=== PATIENT | female | born 1980 | race Caucasian/White ===

== ENCOUNTER 2017-11-03 10:42 | Day surgery (SDC) | payer OTHER ==
[2017-10-30 09:22] VITALS: BMI 28.3
[~2017-11-03 10:42] MED LIST: DEXAMETHASONE SOD PHOSPHATE 10 MG/ML 1 ML VIAL IV ONE; HEPARIN SODIUM,PORCINE 5,000 UNIT/ML 1 ML VIAL SQ ONE; LACTATED RINGERS 1,000 ML IV SCH; MIDAZOLAM 2 MG/2 ML VIAL IV PRN; MORPHINE SULFATE 4 MG/ML SYRINGE IV PRN; ONDANSETRON 4 MG/2 ML VIAL IVP ONE; Pre Op ABX Message 1 EACH MISC MISCELLANE ONE; SCOPOLAMINE 1.5MG/72HR PATCH TRANSDERM ONE
[2017-11-03] MEDS ORDERED: LIDOCAINE 1% 20 ML VIAL (10MG/ML) FOR IV START INTRADERMA ONE (11:15)
[2017-11-03] MEDS ORDERED: PROPOFOL 10 MG/ML 20 ML VIAL IV ONE (13:46)
[2017-11-03] MEDS ORDERED: fentaNYL (PF) 50 MCG/ML 2 ML AMP ONE (13:46)
[2017-11-03] MEDS ORDERED: SODIUM CHLORIDE 0.9% 50 ML with ceFAZolin 2,000 MG IV ONE ×2 (13:46)
[2017-11-03] MEDS ORDERED: PHENYLEPHRINE-0.9% NACL SYG 1 MG/10 ML SYRINGE ONE (13:46)
[2017-11-03] MEDS ORDERED: LIDOCAINE 1% INJ 10MG/ML (20 ML MDV) ONE (13:46)
[2017-11-03] MEDS ORDERED: MIDAZOLAM 2 MG/2 ML VIAL ONE (13:46)
[2017-11-03] MEDS ORDERED: SUCCINYLCHOLINE CHLORIDE 100 MG/5 ML SYR IV ONE (13:46)
[2017-11-03] MEDS ORDERED: BUPIVACAINE-EPI 0.5%-1:200,000 10 ML VIAL SQ ONE (14:12)
[2017-11-03] MEDS ORDERED: LACTATED RINGERS 1,000 ML IV ONE (14:38)
[2017-11-03 14:54] VITALS: RESP 16; TEMP 98
[2017-11-03] MEDS ORDERED: HYDROcodone/APAP 5-325MG 1 EACH TAB PO ONE (15:35)
[2017-11-03 16:02] VITALS: BP 120/72; PULSE 96
--- NOTE | 2017-11-06 12:48 | P.OP ---
Date of Procedure: 11/03/17 Preoperative Diagnosis: Recurrent lower back soft tissue mass Postoperative Diagnosis: Same Procedure(s) Performed: Excision of recurrent lower back mass with wire locx2 Anesthesia: JAN Surgeon: Jessika Peterson Pathology: other Disposition: PACU Indications for Procedure: 36 years old female presents with recurrent lump in the lower back. She had excision of lower back lipoma few years ago and patient states the mass was always there and even after surgery. Ultrasound showed soft tissue mass consistent with lipoma. The mass was not readily palpable on prone position and hence wire localization was requested for bracketing the lesion Operative Findings: 2 x 3 x 2 cm soft tissue lipomatous mass which was completely excised with additional surrounding soft tissue measuring 1 x 2 x 1 cm Description of Procedure: Patient underwent wire localization under ultrasound and bracketing of the lower back lesion. She was brought to the operating room and placed in supine position. Gen. anesthesia with endotracheal intubation was performed. Patient was then positioned prone. The guidewires were medial to the prior incision site. A 3 cm skin incision was made and deepened through the subcutaneous tissue. A well-circumscribed lobulated fatty mass was identified. This was dissected from the surrounding tissue. Both wires were identified and included in the specimen. Additional rim of surrounding soft tissue mass was removed. The final defect measured 5.2 x 5.2 x 1.7 cm. This was closed in 2 layers using interrupted sutures of 3-0 Vicryl and interrupted 3-0 nylon stitches. Sponge, instrument and needle count were correct 2. Clean dressings applied. Patient tolerated the procedure well
== END 2017-11-03 16:24 | disposition home or self-care (01) ==
LOC: OR 10:42
PROVIDERS: ATTEND Surgery
DX: D17.1 Benign lipomatous neoplasm of skin and subcutaneous tissue of trunk (principal); E89.0 Postprocedural hypothyroidism; I47.1 Supraventricular tachycardia; E07.9 Disorder of thyroid, unspecified; Z79.899 Other long term (current) drug therapy; Z88.8 Allergy status to other drugs, medicaments and biological substances
CPT/HCPCS: 88304; 21931; J2250; J1644; J1100; J2405; J2001; J3010; J0690; J2370; J0330; J2704

== ENCOUNTER → 2017-11-03 | Day surgery (SDC) | payer OTHER ==
--- NOTE | 2017-11-03 09:15 | P.GSHP ---
History of Present Illness H&P Date: 11/03/17 Chief Complaint: Recurrent lipoma of lower back 36 yrs old female presents with a painful lump next to her lipoma removal scar from the back.Patient states that Dr. Wells removed a lipoma from her back several years. She had severe pain in the post op period and prolonged recovery time. No infection" it was a deep lipoma" . Patient however noticed the lump in the immediate post op period and as per her an ultrasound was done after surgery which showed persistent lipoma. She is unsure if the size has increased and is considering removal now. ROS Additionally reports: Constitutional: No fever, chills or rigors. Intentional 30 lbs weight loss HEENT: No difficulty with hearing, vision and swallowing. Lymphatic: No axillary, inguinal and cervical swellings. Endocrine: Hypothyroidism . Denies history of diabetes. Respiratory: No chest pain, shortness of breath, and cough. No hemoptysis. Cardiovascular: No palpitations, irregular HR Gastrointestinal: Denies heartburn. No change in bowel habits. No nausea or vomiting. Genitourinary: No increase in urinary frequency or urgency. No hematuria. Musculoskeletal: No back pain, joint stiffness or pain. Neurologic: No history of seizure disorder and headaches. Psychiatric: Has depression. Hematologic: Denies any abnormal mucosal bleeding or easy bruising. Physical Exam Patient is a 36-year-old female. Constitutional: General Appearance: healthy-appearing, well-nourished, and well- developed. Level of Distress: NAD. Ambulation: ambulating normally. Psychiatric: Insight: good judgement. Orientation: to time, place, and person. Head: Head: normocephalic and atraumatic. Eyes: Lids and Conjunctivae: no discharge or pallor and non-injected. Sclerae: non-icteric. ENMT: Oropharynx: moist mucous membranes. Musculoskeletal:: Motor Strength and Tone: normal and normal tone. Joints, Bones, and Muscles: normal movement of all extremities. Extremities: no cyanosis or edema. Neurologic: Gait and Station: normal gait and station. Cranial Nerves: grossly intact. Back: Thoracolumbar Appearance: well healed scar along right paraspinal area consistent with prior surgery. 3x3 cm soft tissue mass adjacent to the mass - clinically a soft tissue mass. Assessment / Plan Patient insists that there was an US done immediately after her sx which showed persistent lipoma. No reports available in [facility] portal US of back soft mass- 2.1x1.1 x1.7 cm mass consistent with lipoma. Patient wants the area removed secondary to persistent pain . I explained that the lesion is small and may not be the source of pain. Plan for US guided wire loc (bracketing) and removal in OR Ancef 2 gm IVPBx1 in preop 1. Mass of soft tissue R22.9: Localized swelling, mass and lump, unspecified 2. Hypothyroidism E03.9: Hypothyroidism, unspecified HYPOTHYROIDISM: CARE INSTRUCTIONS Past Medical History Past Medical History: Supraventricular Tachycardia (SVT) Additional Past Medical History / Comment(s): HAS BEEN HAVING PERIODS OF TACHYCARDIA History of Any Multi-Drug Resistant Organisms: None Reported Past Surgical History: Adenoidectomy, Appendectomy, Cardiac Ablation, Section, Tonsillectomy Additional Past Surgical History / Comment(s): THYROIDECTOMY. LAPAROSCOPIC EXAM Past Anesthesia/Blood Transfusion Reactions: Postoperative Nausea & Vomiting ( PONV) Smoking Status: Never smoker - Past Family History Mother Family Medical History: No Reported History Medications and Allergies Home Medications Medication Instructions Recorded Confirmed Type Zolpidem Tartrate [Ambien] 10 mg PO HS PRN 10/13/14 10/30/17 History L.acidoph/B.long/L.plant/B.lac 1 cap PO DAILY 10/14/14 10/30/17 History [Probiotic Acidophilus Beads] Ascorbic Acid [Vitamin C] 1,000 mg PO DAILY 10/30/17 10/30/17 History Calcium/Magnesium/Zinc 1 each PO DAILY 10/30/17 10/30/17 History [Lbdhdia-Kpkiiwfpu-Qssf Tablet] Levothyroxine Sodium [Tirosint] 125 mcg PO HS 10/30/17 10/30/17 History Vitamin B Complex 1 each PO DAILY 10/30/17 10/30/17 History valACYclovir [Valtrex] 500 mg PO DAILY 10/30/17 10/30/17 History Allergies Allergy/AdvReac Type Severity Reaction Status Date / Time droperidol [From Inapsine] Allergy stated Verified 10/30/17 09:03 "unable to talk had a locked jaw"
--- NOTE | 2017-11-03 13:21 | US ---
ULTRASOUND GUIDED NEEDLE LOCALIZATION LIPOMA OF THE BACK: CLINICAL HISTORY: Lipoma of the back FINDINGS: The procedure was explained to the patient. The risks, complications, benefits and alternatives were discussed and any questions were answered. Informed consent was obtained. Patient was placed supin e on the ultrasound table and prepped and draped in the usual sterile fashion. Utilizing a 5 cm Kopa n's needle, a wire localization was placed along the margins of the lipoma as requested by the candi nNohelia. Patient was stable throughout the procedure. All elements of maximal barrier and sterile technique were utilized. IMPRESSION: 1. Successful ultrasound guided needle localization wire placed for subcutaneous lipoma within the b ack.
== END ==
LOC: RADPROMAIN 10:33
PROVIDERS: ATTEND Surgery
DX: D17.1 Benign lipomatous neoplasm of skin and subcutaneous tissue of trunk (principal); E03.9 Hypothyroidism, unspecified; I47.1 Supraventricular tachycardia; Z79.899 Other long term (current) drug therapy; Z88.8 Allergy status to other drugs, medicaments and biological substances
CPT/HCPCS: 10035; 76942

== ENCOUNTER → 2017-12-05 | Outpatient (CLI) | payer OTHER | END | disposition home or self-care (01) | LOC: LABWHC1 07:30 | PROVIDERS: ATTEND Obstetrics & Gynecology | DX: N92.0 Excessive and frequent menstruation with regular cycle (principal) | CPT/HCPCS: 36415; 83001; 83002; 84146; 84443 ==

== ENCOUNTER → 2017-12-05 | Outpatient (CLI) | payer OTHER ==
[2017-12-05 08:20] LABS: Basophils % (A) 0 %; Eosinophils # (A) 0.1 k/uL (0-0.7); Eosinophils % (A) 1 %; HCT 47.6 % (34.0-46.0); HGB 14.8 gm/dL (11.4-16.0); Lymphocytes # (A) 1.8 k/uL (1.0-4.8); Lymphocytes % (A) 22 %; MCH 28.2 pg (25.0-35.0); MCHC 31.1 g/dL (31.0-37.0); MCV 90.6 fL (80.0-100.0); Mean Platelet Volume 7.7; Monocytes # (A) 0.3 k/uL (0-1.0); Monocytes % (A) 4 %; Neutrophils # (A) 5.8 k/uL (1.3-7.7); Neutrophils % (A) 71 %; Platelet Count 210 k/uL (150-450); RBC 5.25 m/uL (3.80-5.40); RDW 12.7 % (11.5-15.5); WBC 8.2 k/uL (3.8-10.6)
== END | disposition home or self-care (01) ==
LOC: LABPAT 07:32
PROVIDERS: ATTEND Obstetrics & Gynecology
DX: Z01.812 Encounter for preprocedural laboratory examination (principal)
CPT/HCPCS: 85025

== ENCOUNTER 2017-12-14 07:59 | Day surgery (SDC) | payer OTHER ==
[2017-12-08 14:25] VITALS: BMI 27.9
[~2017-12-14 07:59] MED LIST changes: -DEXAMETHASONE SOD PHOSPHATE 10 MG/ML 1 ML VIAL IV ONE; -HEPARIN SODIUM,PORCINE 5,000 UNIT/ML 1 ML VIAL SQ ONE; +HYDROmorphone 0.5 MG/0.5 ML SYRINGE IVP PRN; -MIDAZOLAM 2 MG/2 ML VIAL IV PRN; -MORPHINE SULFATE 4 MG/ML SYRINGE IV PRN; -ONDANSETRON 4 MG/2 ML VIAL IVP ONE; +ONDANSETRON 4 MG/2 ML VIAL IVP PRN; -SCOPOLAMINE 1.5MG/72HR PATCH TRANSDERM ONE; +fentaNYL (PF) 50 MCG/ML 2 ML AMP IV PRN
[2017-12-14] MEDS ORDERED: LIDOCAINE 1% 20 ML VIAL (10MG/ML) FOR IV START INTRADERMA ONE (08:36)
[2017-12-14] MEDS ORDERED: DEXAMETHASONE SOD PHOSPHATE 10 MG/ML 1 ML VIAL IV ONE (08:36)
--- NOTE | 2017-12-14 08:53 | P.HPOB ---
History of Present Illness H&P Date: 12/14/17 Chief Complaint: Menorrhagia with family planning Damaris is a 37-year-old female with heavy vaginal bleeding each cycle. While her bleeding is regular the days of separation between periods are only about 21 days. She has had these symptoms for a number of years and reports that she is bleeding almost 10 days every cycle with very heavy bleeding during the first 5 days. A discussion was held with the patient for options for treatment and did include oral contraceptives but she has hypertension as well as a Mirena IUD but she has tried that before and that did not work. She is therefore scheduled for a NovaSure ablation with a D&C and a left scopic tubal occlusion for family planning. Risks/benefits/alternatives were discussed with patient in detail and all questions were answered for her prior to proceeding to the operating room. On physical exam her vital signs are stable and she is afebrile. Heart regular, lungs clear, extremities are without pain. Abdomen soft and nontender with positive bowel sounds. Pelvic exam is otherwise generally unremarkable. Assessment menorrhagia. Plan D&C with NovaSure and laparoscopic tubal occlusion with Filshie clips. Past Medical History Past Medical History: Supraventricular Tachycardia (SVT) Additional Past Medical History / Comment(s): HAS BEEN HAVING PERIODS OF TACHYCARDIA, recently seen by Dr. Wolf. States had a cardiac work-up. States has postural tachycardia. History of Any Multi-Drug Resistant Organisms: None Reported Past Surgical History: Adenoidectomy, Appendectomy, Cardiac Ablation, Section, Tonsillectomy Additional Past Surgical History / Comment(s): THYROIDECTOMY. LAPAROSCOPIC EXAM , Lipoma removed from lower back. Past Anesthesia/Blood Transfusion Reactions: Postoperative Nausea & Vomiting ( PONV) Smoking Status: Never smoker - Past Family History Mother Family Medical History: No Reported History Medications and Allergies Home Medications Medication Instructions Recorded Confirmed Type Zolpidem Tartrate [Ambien] 10 mg PO HS PRN 10/13/14 12/14/17 History L.acidoph/B.long/L.plant/B.lac 1 cap PO DAILY 10/14/14 12/08/17 History [Probiotic Acidophilus Beads] Ascorbic Acid [Vitamin C] 1,000 mg PO DAILY 10/30/17 12/08/17 History Calcium/Magnesium/Zinc 1 each PO DAILY 10/30/17 12/08/17 History [Hvcahcj-Ghuxykxeb-Mdoj Tablet] Levothyroxine Sodium [Tirosint] 125 mcg PO HS 10/30/17 12/14/17 History Vitamin B Complex 1 each PO DAILY 10/30/17 12/08/17 History valACYclovir [Valtrex] 500 mg PO DAILY 10/30/17 12/14/17 History Allergies Allergy/AdvReac Type Severity Reaction Status Date / Time droperidol [From Inapsine] Allergy stated Verified 12/08/17 14:11 "unable to talk had a locked jaw" Exam Osteopathic Statement: *. No significant issues noted on an osteopathic structural exam other than those noted in the History and Physical/Consult. - Vital Signs Vital signs: Vital Signs Temp Pulse Resp BP Pulse Ox 12/14/17 08:33 98.7 F 79 16 119/79 100
[2017-12-14] MEDS ORDERED: NEOSTIGMINE 1 MG/ML 10 ML VIAL ONE (09:21)
[2017-12-14] MEDS ORDERED: ROCURONIUM BROMIDE 10 MG/ML 10 ML VIAL IV ONE (09:21)
[2017-12-14] MEDS ORDERED: fentaNYL (PF) 50 MCG/ML 2 ML AMP ONE (09:21)
[2017-12-14] MEDS ORDERED: HYDROmorphone (PF) 1 MG/ML ONE (09:21)
[2017-12-14] MEDS ORDERED: PHENYLEPHRINE-0.9% NACL SYG 1 MG/10 ML SYRINGE ONE (09:21)
[2017-12-14] MEDS ORDERED: MIDAZOLAM 2 MG/2 ML VIAL ONE (09:21)
[2017-12-14] MEDS ORDERED: PROPOFOL 10 MG/ML 20 ML VIAL IV ONE (09:21)
[2017-12-14] MEDS ORDERED: GLYCOPYRROLATE 0.2 MG/ML 2 ML VIAL ONE (09:21)
[2017-12-14] MEDS ORDERED: KETOROLAC 30 MG/ML 1 ML VIAL ONE (09:21)
[2017-12-14] MEDS ORDERED: LIDOCAINE 1% INJ 10MG/ML (20 ML MDV) ONE (09:21)
[2017-12-14] MEDS ORDERED: BUPIVACAINE (PF) 0.25% 30 ML VIAL SQ ONE (09:39)
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
[2017-12-14 10:30] VITALS: TEMP 98
[2017-12-14] MEDS ORDERED: HYDROmorphone 0.5 MG/0.5 ML SYRINGE IVP ONE (10:37)
[2017-12-14] MEDS ORDERED: diphenhydrAMINE 50 MG/ML 1 ML VIAL IVP ONE (10:42)
[2017-12-14] MEDS ORDERED: LACTATED RINGERS 1,000 ML IV ONE (11:10)
[2017-12-14] MEDS ORDERED: HYDROcodone/APAP 5-325MG 1 EACH TAB PO ONE (11:44)
[2017-12-14 12:21] VITALS: BP 143/90; PULSE 93; RESP 16
== END 2017-12-14 13:01 | disposition home or self-care (01) ==
LOC: OR 07:59
PROVIDERS: ATTEND Obstetrics & Gynecology
DX: N84.0 Polyp of corpus uteri (principal); Z30.2 Encounter for sterilization; N83.8 Other noninflammatory disorders of ovary, fallopian tube and broad ligament; K66.0 Peritoneal adhesions (postprocedural) (postinfection); I10 Essential (primary) hypertension; E89.0 Postprocedural hypothyroidism; Z79.899 Other long term (current) drug therapy; Z88.8 Allergy status to other drugs, medicaments and biological substances
CPT/HCPCS: 58671; 58563; 81025; 88305; J2250; J1200; J1100; J2710; J2405; J2001; J3010; J1885; J1170 ×2; J2370; J2704

== ENCOUNTER → 2017-12-30 | Outpatient (CLI) | payer OTHER ==
--- NOTE | 2017-12-30 08:28 | XR ---
EXAMINATION TYPE: XR knee complete LT DATE OF EXAM: 12/30/2017 CLINICAL HISTORY: Left knee pain. TECHNIQUE: Three views of the left knee are obtained. COMPARISON: None. FINDINGS: There is no acute fracture/dislocation evident in left knee. The tri-compartment joint sp aces appear within normal limits. The overlying soft tissue appears unremarkable. IMPRESSION: Unremarkable study.
== END | disposition home or self-care (01) ==
LOC: RADXRMAIN 08:09
PROVIDERS: ATTEND Physician Assistant
DX: M25.562 Pain in left knee (principal)

== ENCOUNTER → 2018-08-29 | Outpatient (CLI) | payer OTHER ==
--- NOTE | 2018-08-30 06:24 | MR ---
EXAMINATION TYPE: MR knee LT wo con DATE OF EXAM: 08/29/2018 COMPARISON: Left knee x-ray December 30, 2017. HISTORY: Left knee pain per order. Pain and swelling for 10 months per patient. TECHNIQUE: Multiplanar, multisequence images of the knee is performed without IV contrast. FINDINGS: MEDIAL MENISCUS: Anterior and posterior horns are intact without tear. LATERAL MENISCUS: Anterior and posterior horns are intact without tear. CRUCIATE LIGAMENTS: The anterior and posterior cruciate ligaments are intact and unremarkable. COLLATERAL LIGAMENTS: The medial collateral ligament and lateral collateral ligament complex are inta ct and unremarkable. EXTENSOR MECHANISM: Visualized quadriceps and patellar tendons are intact. EFFUSION: There is small to moderate-size suprapatellar joint effusion. POPLITEAL CYST: There is moderate to large size septated popliteal/arzate cyst measuring 6.9 cm long a xis sagittal image 22. TRICOMPARTMENT SPACES: Tricompartment joint spaces are fairly well-maintained. No significant spurrin g is seen. CARTILAGE: Tricompartment articular cartilage is preserved. There is no significant chondromalacia pa tella. BONE MARROW SIGNAL: No focal abnormal marrow signal is appreciated. OTHER: No additional significant abnormality is appreciated. IMPRESSION: 1. No meniscal or ligamentous tear is seen. 2. Moderate to large sized septated popliteal cyst. 3. Small to moderate size suprapatellar joint effusion.
== END | disposition home or self-care (01) ==
LOC: RADMRIMAIN 20:11
PROVIDERS: ATTEND Family Medicine
DX: M25.462 Effusion, left knee (principal); M71.22 Synovial cyst of popliteal space [Baker], left knee

== ENCOUNTER 2021-02-19 11:22 | Day surgery (SDC) | payer BC, OTHER ==
[~2021-02-19 11:22] MED LIST changes: -HYDROmorphone 0.5 MG/0.5 ML SYRINGE IVP PRN; -ONDANSETRON 4 MG/2 ML VIAL IVP PRN; -Pre Op ABX Message 1 EACH MISC MISCELLANE ONE; -fentaNYL (PF) 50 MCG/ML 2 ML AMP IV PRN
[2021-02-19 11:43] VITALS: RESP 16; TEMP 98.2
[2021-02-19] MEDS ORDERED: PROPOFOL 10 MG/ML 20 ML VIAL IV ONE (12:12)
--- NOTE | 2021-02-19 12:28 | P.PCN ---
Date of Procedure: 02/19/21 Procedure(s) Performed: BRIEF HISTORY: Patient is a 40-year-old pleasant white female scheduled for an elective colonoscopy as a part of evaluation of change in bowel habits and intermittent lower abdominal pain and rectal bleeding PROCEDURE PERFORMED: Colonoscopy. PREOPERATIVE DIAGNOSIS: Left lower quadrant abdominal pain, change in bowel habits and intermittent rectal bleeding. IV sedation per Anesthesia. PROCEDURE: After informed consent was obtained, the patient, was brought into the endoscopy unit. IV sedation was administered by Anesthesia under continuous monitoring. Digital rectal examination was normal. Initially the Olympus CF-160 flexible video colonoscope was then inserted in the rectum, gradually advanced into the cecum without any difficulty. Careful examination was performed as the scope was gradually being withdrawn. Ileocecal valve and the appendiceal orifice were visualized and appeared normal. Prep was air.. Mucosa of the cecum, ascending colon, transverse colon, descending colon, sigmoid colon, and rectum appeared normal. Retroflexion was performed in the rectum and no lesions were seen. The patient tolerated the procedure well. IMPRESSION: Normal-appearing colon from rectum to cecum no evidence of colorectal neoplasia . RECOMMENDATIONS: Findings of this examination were discussed with the patient as well as a family. She was advised to be on a high-fiber diet and take fiber supplements a regular basis. She can have a screening colonoscopy in 10 years..
[2021-02-19 12:52] VITALS: BP 124/85; PULSE 78
== END 2021-02-19 13:10 | disposition home or self-care (01) ==
LOC: ORWHC2ENDO 11:22
PROVIDERS: ATTEND Internal Medicine Gastroenterology
DX: K62.5 Hemorrhage of anus and rectum (principal); R10.30 Lower abdominal pain, unspecified; R19.4 Change in bowel habit; Z79.890 Hormone replacement therapy; Z79.899 Other long term (current) drug therapy; I47.1 Supraventricular tachycardia; E07.9 Disorder of thyroid, unspecified; Z86.73 Personal history of transient ischemic attack (TIA), and cerebral infarction without residual deficits; Z88.8 Allergy status to other drugs, medicaments and biological substances
CPT/HCPCS: 81025; 45378; J2704

== ENCOUNTER 2021-03-07 17:15 | Emergency (ER) | payer BC ==
[2021-03-07 17:19] VITALS: TEMP 97.7
--- NOTE | 2021-03-07 17:53 | ED ---
Chest Pain HPI - General Chief Complaint: Chest Pain Stated Complaint: Chest pressure Time Seen by Provider: 03/07/21 17:25 Source: patient Mode of arrival: ambulatory Limitations: no limitations - History of Present Illness Initial Comments: 40-year-old female presents to emergency department with a chief complaint of chest pressure. States the wall for approximately 2 weeks. States that she believes this was initially asked for reflux and she began taking Tums and Nexium. Patient reports there was no significant improvement in her symptoms. States she went to an urgent care where she was discharged with Reglan and was informed that it could potentially be a hiatal hernia. Patient reports the pressure is across her whole chest without any radiation. States it is intermittent in nature. She also reports associated exertional dyspnea with intermittent lightheadedness but no dizziness, headaches, visual changes, diaphoretic episodes or one-sided weakness and paresthesias. Patient has had 2 cardiac ablations for SVT. - Related Data Home Medications Medication Instructions Recorded Confirmed valACYclovir [Valtrex] 500 mg PO BID PRN 10/30/17 03/07/21 L.acidoph,Paracasei, B.lactis 1 cap PO DAILY 03/07/21 03/07/21 [Probiotic] Levothyroxine Sodium [Synthroid] 125 mcg PO DAILY 03/07/21 03/07/21 Metoclopramide [Reglan] 10 mg PO QID 03/07/21 03/07/21 Pantoprazole Sodium [Protonix] 40 mg PO DAILY 03/07/21 03/07/21 Allergies Allergy/AdvReac Type Severity Reaction Status Date / Time droperidol [From Inapsine] Allergy stated Verified 03/07/21 20:09 "unable to talk had a locked jaw" Review of Systems ROS Statement: Those systems with pertinent positive or pertinent negative responses have been documented in the HPI. ROS Other: All systems not noted in ROS Statement are negative. EKG Findings - EKG Comments: EKG Findings:: Prolonged QT, anterior ischemia with inverted T waves in V1 through V3. Ventricular rate 89, WA 142, QRS 96, QTc 489. Past Medical History Past Medical History: Supraventricular Tachycardia (SVT), Thyroid Disorder Additional Past Medical History / Comment(s): bleeding with stools,left lower abd pain, alterbating with constipation and diarrhea History of Any Multi-Drug Resistant Organisms: None Reported Past Surgical History: Adenoidectomy, Appendectomy, Cardiac Ablation, Section, Tonsillectomy, Tubal Ligation, Uterine Ablation Additional Past Surgical History / Comment(s): THYROIDECTOMY. LAPAROSCOPIC EXAM Past Anesthesia/Blood Transfusion Reactions: Postoperative Nausea & Vomiting (PONV) Past Psychological History: No Psychological Hx Reported Smoking Status: Never smoker Past Alcohol Use History: None Reported Past Drug Use History: None Reported - Past Family History Mother Family Medical History: No Reported History Father Family Medical History: Cancer Additional Family Medical History / Comment(s): liver CA General Exam Limitations: no limitations General appearance: alert, in no apparent distress, obese Head exam: Present: atraumatic, normocephalic, normal inspection Eye exam: Present: normal appearance, PERRL, EOMI Pupils: Present: normal accommodation ENT exam: Present: normal exam, normal oropharynx, mucous membranes moist Neck exam: Present: normal inspection, full ROM. Absent: tenderness Respiratory exam: Present: normal lung sounds bilaterally. Absent: respiratory distress, wheezes, rales, rhonchi, stridor, chest wall tenderness, accessory muscle use Cardiovascular Exam: Present: regular rate, normal rhythm, normal heart sounds. Absent: systolic murmur GI/Abdominal exam: Present: soft. Absent: distended, tenderness, guarding, rebound Extremities exam: Present: normal inspection, full ROM, normal capillary refill. Absent: tenderness, pedal edema, joint swelling Back exam: Present: normal inspection, full ROM. Absent: tenderness, CVA tenderness (R), CVA tenderness (L) Neurological exam: Present: alert, oriented X3 Psychiatric exam: Present: normal affect, normal mood Skin exam: Present: warm, dry, intact, normal color Course Vital Signs 03/07/21 03/07/21 03/07/21 17:16 19:22 20:55 Temperature 97.7 F Pulse Rate 97 77 73 Respiratory 18 16 16 Rate Blood Pressure 159/94 137/90 111/61 O2 Sat by Pulse 100 98 98 Oximetry Chest Pain MDM - MDM 4-year-old female presents emergency Department with a chief complaint of chest pressure. Physical examination is unremarkable. I will signs are within normal limits. EKG is showing anterior ischemia with no other EKG to compare. Patient also requested a GI cocktail. Laboratory initial troponin negative. Chest x- ray unremarkable. workup is unremarkable. Patient has a heart score of 1. Repeat troponin was also negative. On reevaluation, patient reports improvement in symptoms and requested a secondary GI cocktail which was given to her. 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 I do suspect esophagitis or GERD to be causing her symptoms. Return parameters were discussed patient with standing and agreeable. Case discussed with Disposition Clinical Impression: Chest pressure Disposition: HOME SELF-CARE Condition: Stable Instructions (If sedation given, give patient instructions): Chest Pain (ED) Additional Instructions: Please return to the Emergency Department if symptoms worsen or any other concerns. Is patient prescribed a controlled substance at d/c from ED?: No Referrals: Edwin Currie DO [Primary Care Provider] - 1-2 days Time of Disposition: 21:25
[2021-03-07 18:03] LABS: Basophils % (A) 0 %; Eosinophils # (A) 0.1 k/uL (0-0.7); Eosinophils % (A) 2 %; HCT 45.3 % (34.0-46.0); HGB 14.9 gm/dL (11.4-16.0); Lymphocytes # (A) 2.5 k/uL (1.0-4.8); Lymphocytes % (A) 32 %; MCH 28.1 pg (25.0-35.0); MCHC 32.9 g/dL (31.0-37.0); MCV 85.3 fL (80.0-100.0); Mean Platelet Volume 9.6; Monocytes # (A) 0.4 k/uL (0-1.0); Monocytes % (A) 5 %; Neutrophils # (A) 4.5 k/uL (1.3-7.7); Neutrophils % (A) 59 %; Platelet Count 183 k/uL (150-450); RBC 5.31 m/uL (3.80-5.40); RDW 13.5 % (11.5-15.5); WBC 7.7 k/uL (3.8-10.6)
[2021-03-07 18:12] LABS: ALT 16 U/L (4-34); AST 25 U/L (14-36); African American GFR (CKD) >90 (>60 ml/min/1.73 sqM); Albumin 4.1 g/dL (3.5-5.0); Alkaline Phosphatase 95 U/L (38-126); Anion Gap 7 mmol/L; Blood Urea Nitrogen 16 mg/dL (7-17); Calcium 8.9 mg/dL (8.4-10.2); Carbon Dioxide 25 mmol/L (22-30); Chloride 107 mmol/L (98-107); Glucose 95 mg/dL (74-99); Magnesium 1.8 mg/dL (1.6-2.3); Non-African American GFR(CKD) >90 (>60 ml/min/1.73 sqM); Potassium 3.6 mmol/L (3.5-5.1); Sodium 139 mmol/L (137-145); Total Bilirubin 0.7 mg/dL (0.2-1.3); Total Protein 7.1 g/dL (6.3-8.2)
[2021-03-07 18:16] LABS: D-Dimer <0.17 mg/L FEU (<0.60); INR 0.9 (<1.2); Partial Thromboplastin Time 23.5 sec (22.0-30.0); Prothrombin Time 9.7 sec (9.0-12.0)
--- NOTE | 2021-03-07 18:31 | XR ---
EXAMINATION TYPE: XR chest 2V DATE OF EXAM: 03/07/2021 COMPARISON: 09/16/2010 HISTORY: Chest pain TECHNIQUE: 2 views FINDINGS: Heart and mediastinum are normal. Lungs are clear. Diaphragm is normal. Bony thorax appears normal. IMPRESSION: Normal chest. No change.
[2021-03-07] MEDS ORDERED: MAG HYDROX/AL HYDROX/SIMETH 30 ML, HYOSCYAMINE ELIXIR 10 ML, LIDOCAINE VISCOUS 2% 10 ML PO STA ×6 (19:01→21:27)
[2021-03-07 19:22] VITALS: RESP 16
[2021-03-07 21:25] VITALS: BP 111/61; PULSE 73
== END 2021-03-07 21:40 | disposition home or self-care (01) ==
LOC: EC 17:15
DX: R07.89 Other chest pain (principal); E07.9 Disorder of thyroid, unspecified; I47.1 Supraventricular tachycardia; Z79.890 Hormone replacement therapy
CPT/HCPCS: 36415; 71046; 80053; 83735; 84484; 85025; 85379; 85610; 85730; 93005; 99285

== ENCOUNTER 2021-04-13 20:52 | Inpatient (IN) | payer BC ==
[2021-04-13] MEDS ORDERED: ACETAMINOPHEN TAB 500 MG TAB PO STA (21:20)
[2021-04-13] MEDS ORDERED: IBUPROFEN 800 MG TAB PO STA (21:20)
[2021-04-13] MEDS ORDERED: SODIUM CHLORIDE 0.9% 1,000 ML IV STA (21:21)
[2021-04-13] MEDS ORDERED: SODIUM CHLORIDE 0.9% 500 ML 500 ML IV STA (21:21)
--- NOTE | 2021-04-13 21:21 | ED ---
Recheck HPI - General Chief Complaint: Abdominal Pain Stated Complaint: Fever,ABD pain Time Seen by Provider: 04/13/21 21:17 Source: patient Limitations: no limitations - History of Present Illness Initial Comments: This is a 40-year-old female DF for evaluation abdominal pain left lower quadrant abdominal pain states she recent colonoscopy associated no diverticulosis or any history of any disease. Patient has nausea and vomiting dehydration and feels weak. patient has no sick contacts or travel history no similar patients with similar complaint but does have fever -: days(s) Returns Today for: persistent/worsening pain related to initial visit Symptoms Since Prior Visit: worsening pain Associated Symptoms: fever, malaise, nausea, abdominal pain Treatments Prior to Arrival: Given Antibiotics on, Given Pain Meds on - Related Data Home Medications Medication Instructions Recorded Confirmed valACYclovir [Valtrex] 500 mg PO BID PRN 10/30/17 04/13/21 Levothyroxine Sodium [Synthroid] 125 mcg PO DAILY 03/07/21 04/13/21 Metoclopramide [Reglan] 10 mg PO QID PRN 03/07/21 04/13/21 Pantoprazole Sodium [Protonix] 40 mg PO DAILY 03/07/21 04/13/21 Dicyclomine HCl 10 mg PO TID PRN 04/13/21 04/13/21 Famotidine [Pepcid] 20 mg PO DAILY 04/13/21 04/13/21 Previous Rx's Medication Instructions Recorded Amoxicillin/Potassium Clav 1 tab PO Q12HR 7 Days #14 tab 04/15/21 [Augmentin 875-125 Tablet] Allergies Allergy/AdvReac Type Severity Reaction Status Date / Time droperidol [From Inapsine] Allergy stated Verified 04/13/21 22:47 "unable to talk had a locked jaw" Review of Systems ROS Statement: Those systems with pertinent positive or pertinent negative responses have been documented in the HPI. ROS Other: All systems not noted in ROS Statement are negative. Past Medical History Past Medical History: Supraventricular Tachycardia (SVT), Thyroid Disorder Additional Past Medical History / Comment(s): bleeding with stools,left lower abd pain, alterbating with constipation and diarrhea History of Any Multi-Drug Resistant Organisms: None Reported Past Surgical History: Adenoidectomy, Appendectomy, Cardiac Ablation, Section, Tonsillectomy, Tubal Ligation, Uterine Ablation Additional Past Surgical History / Comment(s): THYROIDECTOMY. LAPAROSCOPIC EXAM Past Anesthesia/Blood Transfusion Reactions: Postoperative Nausea & Vomiting (PONV) Past Psychological History: No Psychological Hx Reported Smoking Status: Never smoker Past Alcohol Use History: None Reported Past Drug Use History: None Reported - Past Family History Mother Family Medical History: No Reported History Father Family Medical History: Cancer Additional Family Medical History / Comment(s): liver CA General Exam Limitations: no limitations General appearance: alert, in no apparent distress Head exam: Present: atraumatic, normocephalic, normal inspection Eye exam: Present: normal appearance, PERRL, EOMI. Absent: scleral icterus, conjunctival injection, periorbital swelling ENT exam: Present: normal exam, mucous membranes dry Neck exam: Present: normal inspection. Absent: tenderness, meningismus, lymphadenopathy Respiratory exam: Present: normal lung sounds bilaterally. Absent: respiratory distress, wheezes, rales, rhonchi, stridor Cardiovascular Exam: Present: normal rhythm, tachycardia, normal heart sounds. Absent: systolic murmur, diastolic murmur, rubs, gallop, clicks GI/Abdominal exam: Present: soft, tenderness (Left lower quadrant), normal bowel sounds. Absent: distended, guarding, rebound, rigid Extremities exam: Present: normal inspection, full ROM, normal capillary refill. Absent: tenderness, pedal edema, joint swelling, calf tenderness Back exam: Present: normal inspection Neurological exam: Present: alert, oriented X3, CN II-XII intact Psychiatric exam: Present: normal affect, normal mood Skin exam: Present: warm, dry, intact, normal color. Absent: rash Course Vital Signs 04/13/21 04/13/21 04/13/21 20:54 21:12 22:00 Temperature 98.8 F 100.3 F H Pulse Rate 138 H 142 H 146 H Respiratory 16 16 16 Rate Blood Pressure 165/104 147/101 121/78 O2 Sat by Pulse 100 99 98 Oximetry 04/13/21 04/14/21 04/14/21 23:43 01:00 02:00 Temperature 99.6 F 98.0 F Pulse Rate 107 H 96 89 Respiratory 16 16 16 Rate Blood Pressure 149/89 119/66 O2 Sat by Pulse 98 98 96 Oximetry 04/14/21 04/14/21 04/14/21 05:16 08:25 09:00 Temperature 98.1 F 98.2 F 98.2 F Pulse Rate 80 89 89 Respiratory 16 16 16 Rate Blood Pressure 101/57 108/69 108/69 O2 Sat by Pulse 97 98 98 Oximetry 04/14/21 04/14/21 04/14/21 10:00 11:00 12:00 Temperature Pulse Rate 82 89 90 Respiratory 16 16 16 Rate Blood Pressure O2 Sat by Pulse 98 Oximetry 04/14/21 04/14/21 04/14/21 13:00 14:00 14:42 Temperature 98.6 F Pulse Rate 88 85 92 Respiratory 16 16 16 Rate Blood Pressure 103/71 121/74 O2 Sat by Pulse 98 95 Oximetry 04/14/21 04/14/21 15:18 15:19 Temperature 98.6 F Pulse Rate 92 92 Respiratory 16 16 Rate Blood Pressure 121/74 121/74 O2 Sat by Pulse 95 95 Oximetry - Reevaluation(s) Reevaluation #1: Medical record is reviewed Patient no significant acute distress Patient symptoms improved here in the ER Patient informed of results and questions answered Medical Decision Making - Medical Decision Making 40 female DEL with diverticulitis and colitis. Patient be admitted for IV antibiotics and symptom management - Lab Data Result diagrams: 04/15/21 13:11 04/13/21 21:45 Lab Results 04/13/21 04/13/21 04/13/21 Range/Units 21:45 21:45 21:45 WBC 16.0 H (3.8-10.6) k/uL RBC 5.57 H (3.80-5.40) m/uL Hgb 16.5 H (11.4-16.0) gm/dL Hct 46.5 H (34.0-46.0) % MCV 83.4 (80.0-100.0) fL MCH 29.6 (25.0-35.0) pg MCHC 35.4 (31.0-37.0) g/dL RDW 13.2 (11.5-15.5) % Plt Count 181 (150-450) k/uL MPV 8.4 Neutrophils % 88 % Lymphocytes % 7 % Monocytes % 4 % Eosinophils % 1 % Basophils % 0 % Neutrophils # 14.1 H (1.3-7.7) k/uL Lymphocytes # 1.1 (1.0-4.8) k/uL Monocytes # 0.6 (0-1.0) k/uL Eosinophils # 0.1 (0-0.7) k/uL Basophils # 0.0 (0-0.2) k/uL PT 9.8 (9.0-12.0) sec INR 0.9 (<1.2) APTT 22.7 (22.0-30.0) sec D-Dimer 0.42 (<0.60) mg/L FEU Sodium 139 (137-145) mmol/L Potassium 3.9 (3.5-5.1) mmol/L Chloride 102 (98-107) mmol/L Carbon Dioxide 24 (22-30) mmol/L Anion Gap 13 mmol/L BUN 14 (7-17) mg/dL Creatinine 0.71 (0.52-1.04) mg/dL Est GFR (CKD-EPI)AfAm >90 (>60 ml/min/1.73 sqM) Est GFR (CKD-EPI)NonAf >90 (>60 ml/min/1.73 sqM) Glucose 97 (74-99) mg/dL Lactic Ac Sepsis Rflx Plasma Lactic Acid Chaitanya (0.7-2.0) mmol/L Calcium 9.9 (8.4-10.2) mg/dL Magnesium 1.5 L (1.6-2.3) mg/dL Ferritin 94.6 (10.0-291.0) ng/mL Total Bilirubin 1.3 (0.2-1.3) mg/dL AST 31 (14-36) U/L ALT 25 (4-34) U/L Alkaline Phosphatase 93 (38-126) U/L Lactate Dehydrogenase 536 (313-618) U/L C-Reactive Protein 1.1 H (<1.0) mg/dL Total Protein 8.3 H (6.3-8.2) g/dL Albumin 4.9 (3.5-5.0) g/dL 04/13/21 04/13/21 Range/Units 21:45 22:25 WBC (3.8-10.6) k/uL RBC (3.80-5.40) m/uL Hgb (11.4-16.0) gm/dL Hct (34.0-46.0) % MCV (80.0-100.0) fL MCH (25.0-35.0) pg MCHC (31.0-37.0) g/dL RDW (11.5-15.5) % Plt Count (150-450) k/uL MPV Neutrophils % % Lymphocytes % % Monocytes % % Eosinophils % % Basophils % % Neutrophils # (1.3-7.7) k/uL Lymphocytes # (1.0-4.8) k/uL Monocytes # (0-1.0) k/uL Eosinophils # (0-0.7) k/uL Basophils # (0-0.2) k/uL PT (9.0-12.0) sec INR (<1.2) APTT (22.0-30.0) sec D-Dimer (<0.60) mg/L FEU Sodium (137-145) mmol/L Potassium (3.5-5.1) mmol/L Chloride (98-107) mmol/L Carbon Dioxide (22-30) mmol/L Anion Gap mmol/L BUN (7-17) mg/dL Creatinine (0.52-1.04) mg/dL Est GFR (CKD-EPI)AfAm (>60 ml/min/1.73 sqM) Est GFR (CKD-EPI)NonAf (>60 ml/min/1.73 sqM) Glucose (74-99) mg/dL Lactic Ac Sepsis Rflx Y Plasma Lactic Acid Chaitanya 2.7 H* (0.7-2.0) mmol/L Calcium (8.4-10.2) mg/dL Magnesium (1.6-2.3) mg/dL Ferritin (10.0-291.0) ng/mL Total Bilirubin (0.2-1.3) mg/dL AST (14-36) U/L ALT (4-34) U/L Alkaline Phosphatase (38-126) U/L Lactate Dehydrogenase (313-618) U/L C-Reactive Protein (<1.0) mg/dL Total Protein (6.3-8.2) g/dL Albumin (3.5-5.0) g/dL - EKG Data -: EKG Interpreted by Me (EKG is sinus rhythm 1:30 DE 138 QRS 80 QTC 435) - Radiology Data Radiology results: report reviewed (CT head and pelvis positive for colitis likely diverticulitis), image reviewed Disposition Clinical Impression: Abdominal pain, Diverticulitis, Colitis, Nausea and vomiting, Tachycardia Disposition: ADMITTED IP TO THIS HOSP Condition: Good Is patient prescribed a controlled substance at d/c from ED?: No
[2021-04-13] MEDS: SODIUM CHLORIDE 0.9% 1,000 ML IV SCH (21:57)
--- NOTE | 2021-04-13 21:59 | XR ---
EXAMINATION TYPE: XR chest 1V portable DATE OF EXAM: 04/13/2021 COMPARISON: 03/07/2021 HISTORY: Pneumonia. Fever TECHNIQUE: FINDINGS: Heart and mediastinum are normal. Lungs are clear. Diaphragm is normal. There are chest hood ds. IMPRESSION: Normal chest. No change.
[2021-04-13 22:13] LABS: Basophils % (A) 0 %; Eosinophils # (A) 0.1 k/uL (0-0.7); Eosinophils % (A) 1 %; HCT 46.5 % (34.0-46.0); HGB 16.5 gm/dL (11.4-16.0); Lymphocytes # (A) 1.1 k/uL (1.0-4.8); Lymphocytes % (A) 7 %; MCH 29.6 pg (25.0-35.0); MCHC 35.4 g/dL (31.0-37.0); MCV 83.4 fL (80.0-100.0); Mean Platelet Volume 8.4; Monocytes # (A) 0.6 k/uL (0-1.0); Monocytes % (A) 4 %; Neutrophils # (A) 14.1 k/uL (1.3-7.7); Neutrophils % (A) 88 %; Platelet Count 181 k/uL (150-450); RBC 5.57 m/uL (3.80-5.40); RDW 13.2 % (11.5-15.5)
[2021-04-13 22:22] LABS: ALT 25 U/L (4-34); AST 31 U/L (14-36); African American GFR (CKD) >90 (>60 ml/min/1.73 sqM); Albumin 4.9 g/dL (3.5-5.0); Alkaline Phosphatase 93 U/L (38-126); Anion Gap 13 mmol/L; Blood Urea Nitrogen 14 mg/dL (7-17); C Reactive Protein 1.1 mg/dL (<1.0); Calcium 9.9 mg/dL (8.4-10.2); Carbon Dioxide 24 mmol/L (22-30); Chloride 102 mmol/L (98-107); Glucose 97 mg/dL (74-99); LDH 536 U/L (313-618); Magnesium 1.5 mg/dL (1.6-2.3); Non-African American GFR(CKD) >90 (>60 ml/min/1.73 sqM); Potassium 3.9 mmol/L (3.5-5.1); Sodium 139 mmol/L (137-145); Total Bilirubin 1.3 mg/dL (0.2-1.3); Total Protein 8.3 g/dL (6.3-8.2)
[2021-04-13 22:36] LABS: D-Dimer 0.42 mg/L FEU (<0.60); INR 0.9 (<1.2); Partial Thromboplastin Time 22.7 sec (22.0-30.0); Prothrombin Time 9.8 sec (9.0-12.0)
--- NOTE | 2021-04-13 22:58 | CT ---
EXAMINATION TYPE: CT abdomen pelvis w con DATE OF EXAM: 04/13/2021 COMPARISON: None HISTORY: abdominal pain, fever CT DLP: 1117 mGycm Automated exposure control for dose reduction was used. CONTRAST: Performed with IV Contrast, patient injected with 100 mL of Isovue 300. Lung bases are clear. There is no pleural effusion. Heart size is normal. There is no pericardial eff usion. Liver spleen pancreas stomach gallbladder appear intact. The bile ducts are not dilated. Liver is slightly enlarged and measures 21.7 cm. There is no adrenal mass. Kidneys show satisfactory contrast opacification. There is no hydronephrosi s. Ureters are not dilated. There is no retroperitoneal adenopathy. Appendix not clearly seen. Bladde r distends smoothly. Delayed images show normal renal excretion. There is no inguinal hernia. There are clips from tubal ligation. There is no significant free fluid in the pelvis. There is some fat stranding around the mid sigmoid colon with wall thickening. There i s 2 cm cyst on the left ovary. There is 2 cm cyst at the uterine fundus. Lumbar vertebra have normal alignment. Posterior elements are intact. There is no compression fracture. The bony pelvis is intact . IMPRESSION: Inflammatory changes around the mid sigmoid colon could relate to acute diverticulitis or colitis. Th ere is fat stranding and fluid around the colon. Segment involved measures 7 cm in length. Appendix not seen. No sign of thickened appendix.
[2021-04-13] MEDS ORDERED: MORPHINE SULFATE 4 MG/ML SYRINGE IVP STA (23:14)
[2021-04-13] MEDS ORDERED: AMPICILLIN-SULBACTAM 3 GM in SODIUM CHLORIDE 0.9% 100 ML IVPB STA (23:17)
[2021-04-13] MEDS ORDERED: IBUPROFEN 400 MG TAB PO PRN (23:38)
[2021-04-13] MEDS ORDERED: NALOXONE 0.4 MG/ML 1 ML VIAL IV PRN (23:38)
[2021-04-13] MEDS ORDERED: ACETAMINOPHEN TAB 325 MG TAB PO PRN (23:38)
[2021-04-13] MEDS ORDERED: MORPHINE SULFATE 4 MG/ML SYRINGE IV PRN (23:38)
[2021-04-13] MEDS ORDERED: ONDANSETRON 4 MG/2 ML VIAL IVP PRN (23:38)
[2021-04-14] MEDS: DEXTROSE 5%-0.45% NACL 1,000 ML IV SCH ×3 (00:43→20:16)
[2021-04-14] MEDS: HYDROmorphone 1 MG/ML 1 ML SYRINGE IVP PRN ×4 (01:58→20:14)
[2021-04-14 04:20] LABS: Basophils % (A) 0 %; Eosinophils % (A) 0 %; HCT 36.7 % (34.0-46.0); Lymphocytes # (A) 1.7 k/uL (1.0-4.8); Lymphocytes % (A) 15 %; MCHC 34.7 g/dL (31.0-37.0); MCV 83.6 fL (80.0-100.0); Mean Platelet Volume 8.6; Monocytes # (A) 0.6 k/uL (0-1.0); Monocytes % (A) 6 %; Neutrophils # (A) 9.1 k/uL (1.3-7.7); Neutrophils % (A) 79 %; Platelet Count 146 k/uL (150-450); RBC 4.39 m/uL (3.80-5.40); RDW 13.4 % (11.5-15.5); WBC 11.5 k/uL (3.8-10.6)
[2021-04-14 04:26] LABS: HGB 12.7 gm/dL (11.4-16.0)
[2021-04-14] MEDS: SODIUM CHLORIDE 0.9% 1,000 ML IV SCH ×2 (06:46→13:07)
[2021-04-14] MEDS: PANTOPRAZOLE 40 MG/10 ML VIAL IV SCH (08:26)
[2021-04-14] MEDS ORDERED: DICYCLOMINE 20 MG TAB PO PRN (10:44)
[2021-04-14] MEDS: PIPERACILLIN-TAZOBACTAM 3.375 GM in SODIUM CHLORIDE 0.9% 100 ML IVPB SCH ×2 (13:11→20:15)
[2021-04-14] MEDS: MAGNESIUM SULFATE-D5W PMX 1 GM in DEXTROSE/WATER 1 100ML.BAG IVPB SCH ×2 (13:16→14:36)
[2021-04-14 13:37] LABS: Ferritin 94.6 ng/mL (10.0-291.0)
--- NOTE | 2021-04-14 13:42 | P.CONS ---
History of Present Illness - Reason for Consult Consult date: 04/14/21 abdominal pain, colitis Requesting physician: Chrissy Al - Chief Complaint Abdominal pain - History of Present Illness This is a pleasant 40-year-old white female who presented to the emergency department yesterday with complaints of sharp pain in her left lower quadrant of her abdomen that began around 4:00 in the afternoon followed by fever and chills. She had positive nausea, no vomiting. States this happened 2-3 months ago and has seen Dr. Jimenez in the office. She is being treated for IBS. She had a prior colonoscopy 02/19/2021 with a normal appearing colon. She was prescribed Bentyl and takes as needed, also prescribed amitriptyline but did not continue due to her history of SVT. She has a past medical history of SVT with 2 cardiac ablations, questionable POTS, and thyroid disorder. She states she has IBS with constipation and diarrhea. She states she did have a couple loose stools, no blood in her stool. She recently traveled to [place]. No other family members are sick. Her temperature on admission was 100.3. WBC 11.5, hemoglobin 12.7, hematocrit 36.7, platelets 146,000, total bilirubin 1.3, alkaline phosphatase 93, AST 31, ALT 25. CRP 1.1 CT of abdomen and pelvis show inflammatory changes around the mid sigmoid colon could relate to acute diverticulitis or colitis. There is fat stranding and fluid around the colon. Segment involved measures 7 cm in length. Appendix not seen. No sign of thickened appendix. Review of Systems REVIEW OF SYSTEMS: CARDIOPULMONARY: No chest pain or shortness of breath. Gastrointestinal: Abdominal pain and cramping.. Positive nausea, no vomiting. No hematemesis, coffee-ground emesis. No rectal bleeding, or melena. Constipation and diarrhea. GENITOURINARY: No dysuria or hematuria. MUSCULOSKELETAL: Reports normal range of motion., Joint pain. SKIN: No rashes. No jaundice. ENDOCRINE: Fever and chills.. No excessive weight gain or loss. No polydipsia or polyuria. PSYCHIATRIC: Unremarkable. NEUROLOGY: No change in mental status. Denies dizziness, headache. ENT: Vision unremarkable. CONSTITUTIONAL: No recent weight loss. Patient had fever and chills. Past Medical History Past Medical History: Supraventricular Tachycardia (SVT), Thyroid Disorder Additional Past Medical History / Comment(s): bleeding with stools,left lower abd pain, alterbating with constipation and diarrhea History of Any Multi-Drug Resistant Organisms: None Reported Past Surgical History: Adenoidectomy, Appendectomy, Cardiac Ablation, Section, Tonsillectomy, Tubal Ligation, Uterine Ablation Additional Past Surgical History / Comment(s): THYROIDECTOMY. LAPAROSCOPIC EXAM Past Anesthesia/Blood Transfusion Reactions: Postoperative Nausea & Vomiting (PONV) Past Psychological History: No Psychological Hx Reported Smoking Status: Never smoker Past Alcohol Use History: None Reported Past Drug Use History: None Reported - Past Family History Mother Family Medical History: No Reported History Father Family Medical History: Cancer Additional Family Medical History / Comment(s): liver CA Medications and Allergies Home Medications Medication Instructions Recorded Confirmed Type valACYclovir [Valtrex] 500 mg PO BID PRN 10/30/17 04/13/21 History Levothyroxine Sodium [Synthroid] 125 mcg PO DAILY 03/07/21 04/13/21 History Metoclopramide [Reglan] 10 mg PO QID PRN 03/07/21 04/13/21 History Pantoprazole Sodium [Protonix] 40 mg PO DAILY 03/07/21 04/13/21 History Dicyclomine HCl 10 mg PO TID PRN 04/13/21 04/13/21 History Famotidine [Pepcid] 20 mg PO DAILY 04/13/21 04/13/21 History Allergies Allergy/AdvReac Type Severity Reaction Status Date / Time droperidol [From Inapsine] Allergy stated Verified 04/13/21 22:47 "unable to talk had a locked jaw" Physical Exam Vitals: Vital Signs Temp Pulse Resp BP Pulse Ox 04/14/21 08:25 98.2 F 89 16 108/69 98 04/14/21 05:16 98.1 F 80 16 101/57 97 04/14/21 02:00 98.0 F 89 16 119/66 96 04/14/21 01:00 96 16 98 04/13/21 23:43 99.6 F 107 H 16 149/89 98 04/13/21 22:00 146 H 16 121/78 98 04/13/21 21:12 100.3 F H 142 H 16 147/101 99 04/13/21 20:54 98.8 F 138 H 16 165/104 100 Intake and Output 04/13/21 04/14/21 04/14/21 22:59 06:59 14:59 Other: Weight 81.647 kg General appearance: The patient is alert, oriented, appears in no acute distre ss. HET: Head is normocephalic and atraumatic. Conjunctiva pink. Sclera anicteric. Neck: Supple without lymphadenopathy. Trachea midline. Heart: S1 S2. Regular rate and rhythm. Lungs:Clear to auscultation. Abdomen: Soft,mid and left lower quadrant tenderness, nondistended with bowel sounds. Noguarding or rigidity. Skin: No rashes. No jaundice. Extremities: Normal skin color and turgor. No pedal edema. Neurological: No focal deficits. Alert and oriented 3. Results CBC & Chem 7: 04/14/21 03:37 04/13/21 21:45 Labs: Abnormal Lab Results - Last 24 Hours (Table) 04/13/21 04/13/21 04/13/21 Range/Units 21:45 21:45 21:45 WBC 16.0 H (3.8-10.6) k/uL RBC 5.57 H (3.80-5.40) m/uL Hgb 16.5 H (11.4-16.0) gm/dL Hct 46.5 H (34.0-46.0) % Plt Count (150-450) k/uL Neutrophils # 14.1 H (1.3-7.7) k/uL Plasma Lactic Acid Chaitanya 2.7 H* (0.7-2.0) mmol/L Magnesium 1.5 L (1.6-2.3) mg/dL C-Reactive Protein 1.1 H (<1.0) mg/dL Total Protein 8.3 H (6.3-8.2) g/dL 04/14/21 04/14/21 Range/Units 00:39 03:37 WBC 11.5 H (3.8-10.6) k/uL RBC (3.80-5.40) m/uL Hgb (11.4-16.0) gm/dL Hct (34.0-46.0) % Plt Count 146 L (150-450) k/uL Neutrophils # 9.1 H (1.3-7.7) k/uL Plasma Lactic Acid Chaitanya 2.4 H* (0.7-2.0) mmol/L Magnesium (1.6-2.3) mg/dL C-Reactive Protein (<1.0) mg/dL Total Protein (6.3-8.2) g/dL CT scan - abdomen: report reviewed (CT of abdomen and pelvis show inflammatory changes around the mid sigmoid colon could relate to acute diverticulitis or colitis. There is fat stranding and fluid around the colon. Segment involved measures 7 cm in length. Appendix not seen. No sign of thickened appendix.) Assessment and Plan (1) Abdominal pain Narrative/Plan: 40-year-old female who presented to the emergency department with complaints of new onset abdominal pain and cramping greatest in the left lower quadrant associated with nausea but no vomiting He can yesterday afternoon followed by fevers and chills. She states she had a similar episode 2-3 months ago, at that time she was also having bloody bowel movements. She denies any diarrhea or blood per rectum. States she had some constipation and took 2 laxatives and had a soft bowel movement. She has been treated for irritable bowel syndrome with Bentyl and was prescribed amitriptyline but did not continue due to her history of SVT. She had a max temp 100.3 on admission. She recently returned from a vacation to [place], denies any sick contacts. She had a colonoscopy 02/19/[address] Jimenez that showed a normal-appearing colon. On admission she had leukocytosis, hemoglobin stable at 12.7, CRP 1.1. LFTs unremarkable. Likely dealing with an infectious colitis/diverticulitis, other possibilities include inflammatory or ischemic, although less likely as she has had recent colonoscopy which was normal. Inflammatory markers ordered. Current Visit: Yes Status: Acute Code(s): R10.9 - UNSPECIFIED ABDOMINAL PAIN SNOMED Code(s): 76706542 Plan: 1. Continue symptomatic supportive care 2. Antiemetics as needed for nausea 3. Zosyn q12 hours 4. Protonix 40 mg daily 5. Patient may have clear liquid diet 6. Bentyl as needed 7. No plans on endoscopic evaluation at this time. If patient has a recurrence she is to follow-up with Dr. Jimenez for outpatient colonoscopy. Thank you for this consultation, we will continue to follow Dr. James I agree with the dictator's note, documented as a scribe by Freda Centeno.
--- NOTE | 2021-04-14 14:16 | P.HPIM ---
History of Present Illness Patient is a 40-year-old female came in with complaints of left lower quadrant abdominal pain and severe sharp in nature nonradiating patient was also having crampy abdominal pain. Patient is found to have diverticulitis or colitis patient was started on antibiotics Unasyn which was subsequently switched to Zosyn. Patient to past had similar symptoms. Patient had a colonoscopy at that time which was clear. Patient was diagnosed with the irritable bowel syndrome. Patient's present episode is associated with fever and she says she has temperature of 100.7 at home and had a documented fever of 100.3 here. Patient is bit hypomagnesemia which is being replaced at this time. Patient does have leukocytosis. Review of Systems REVIEW OF SYSTEMS: CONSTITUTIONAL: No fever, no malaise, no fatigue. HEENT: No recent visual problems or hearing problems. Denied any sore throat. CARDIOVASCULAR: No chest pain, orthopnea, PND, no palpitations, no syncope. PULMONARY: No shortness of breath, no cough, no hemoptysis. GASTROINTESTINAL: Patient did complain of diarrhea NEUROLOGICAL: No headaches, no weakness, no numbness. HEMATOLOGICAL: Denies any bleeding or petechiae. GENITOURINARY: Denies any burning micturition, frequency, or urgency. MUSCULOSKELETAL/RHEUMATOLOGICAL: Denies any joint pain, swelling, or any muscle pain. ENDOCRINE: Denies any polyuria or polydipsia. The rest of the 14-point review of systems is negative. Past Medical History Past Medical History: Supraventricular Tachycardia (SVT), Thyroid Disorder Additional Past Medical History / Comment(s): bleeding with stools,left lower abd pain, alterbating with constipation and diarrhea History of Any Multi-Drug Resistant Organisms: None Reported Past Surgical History: Adenoidectomy, Appendectomy, Cardiac Ablation, Section, Tonsillectomy, Tubal Ligation, Uterine Ablation Additional Past Surgical History / Comment(s): THYROIDECTOMY. LAPAROSCOPIC EXAM Past Anesthesia/Blood Transfusion Reactions: Postoperative Nausea & Vomiting (PONV) Past Psychological History: No Psychological Hx Reported Smoking Status: Never smoker Past Alcohol Use History: None Reported Past Drug Use History: None Reported - Past Family History Mother Family Medical History: No Reported History Father Family Medical History: Cancer Additional Family Medical History / Comment(s): liver CA Medications and Allergies Home Medications Medication Instructions Recorded Confirmed Type valACYclovir [Valtrex] 500 mg PO BID PRN 10/30/17 04/13/21 History Levothyroxine Sodium [Synthroid] 125 mcg PO DAILY 03/07/21 04/13/21 History Metoclopramide [Reglan] 10 mg PO QID PRN 03/07/21 04/13/21 History Pantoprazole Sodium [Protonix] 40 mg PO DAILY 03/07/21 04/13/21 History Dicyclomine HCl 10 mg PO TID PRN 04/13/21 04/13/21 History Famotidine [Pepcid] 20 mg PO DAILY 04/13/21 04/13/21 History Allergies Allergy/AdvReac Type Severity Reaction Status Date / Time droperidol [From Inapsine] Allergy stated Verified 04/13/21 22:47 "unable to talk had a locked jaw" Physical Exam Vitals: Vital Signs Temp Pulse Resp BP Pulse Ox 04/14/21 08:25 98.2 F 89 16 108/69 98 04/14/21 05:16 98.1 F 80 16 101/57 97 04/14/21 02:00 98.0 F 89 16 119/66 96 04/14/21 01:00 96 16 98 04/13/21 23:43 99.6 F 107 H 16 149/89 98 04/13/21 22:00 146 H 16 121/78 98 04/13/21 21:12 100.3 F H 142 H 16 147/101 99 04/13/21 20:54 98.8 F 138 H 16 165/104 100 Intake and Output 04/13/21 04/14/21 04/14/21 22:59 06:59 14:59 Other: Weight 81.647 kg PHYSICAL EXAMINATION: GENERAL: The patient is alert and oriented x3, not in any acute distress. Well developed, well nourished. HEENT: Pupils are round and equally reacting to light. EOMI. No scleral icterus. No conjunctival pallor. Normocephalic, atraumatic. No pharyngeal erythema. No thyromegaly. CARDIOVASCULAR: S1 and S2 present. No murmurs, rubs, or gallops. PULMONARY: Chest is clear to auscultation, no wheezing or crackles. ABDOMEN: Soft, nontender, nondistended, normoactive bowel sounds. No palpable organomegaly. MUSCULOSKELETAL: No joint swelling or deformity. EXTREMITIES: No cyanosis, clubbing, or pedal edema. NEUROLOGICAL: Gross neurological examination did not reveal any focal deficits. SKIN: No rashes. Results CBC & Chem 7: 04/14/21 03:37 04/13/21 21:45 Labs: Abnormal Lab Results - Last 24 Hours (Table) 04/13/21 04/13/21 04/13/21 Range/Units 21:45 21:45 21:45 WBC 16.0 H (3.8-10.6) k/uL RBC 5.57 H (3.80-5.40) m/uL Hgb 16.5 H (11.4-16.0) gm/dL Hct 46.5 H (34.0-46.0) % Plt Count (150-450) k/uL Neutrophils # 14.1 H (1.3-7.7) k/uL Plasma Lactic Acid Chaitanya 2.7 H* (0.7-2.0) mmol/L Magnesium 1.5 L (1.6-2.3) mg/dL C-Reactive Protein 1.1 H (<1.0) mg/dL Total Protein 8.3 H (6.3-8.2) g/dL 04/14/21 04/14/21 Range/Units 00:39 03:37 WBC 11.5 H (3.8-10.6) k/uL RBC (3.80-5.40) m/uL Hgb (11.4-16.0) gm/dL Hct (34.0-46.0) % Plt Count 146 L (150-450) k/uL Neutrophils # 9.1 H (1.3-7.7) k/uL Plasma Lactic Acid Chaitanya 2.4 H* (0.7-2.0) mmol/L Magnesium (1.6-2.3) mg/dL C-Reactive Protein (<1.0) mg/dL Total Protein (6.3-8.2) g/dL Assessment and Plan Plan: -Possible colitis/diverticulitis: Patient will be continued on the wasn't antibiotics. Which is Zosyn. IV fluids her abdominal pain significantly improved no diarrhea at this time. Patient will remain nothing by mouth for today possibly will start her on clear liquid diet tomorrow. History of SVT -Hyperthyroidism: Continue with levothyroxine -DVT prophylaxis: Ambulation
[2021-04-15] MEDS: SODIUM CHLORIDE 0.9% 1,000 ML IV SCH ×3 (04:06→08:52)
[2021-04-15] MEDS ORDERED: LEVOTHYROXINE 125 MCG TAB PO SCH (06:30)
[2021-04-15 07:57] VITALS: BP 96/59; PULSE 67; RESP 18; TEMP 98
[2021-04-15] MEDS: PIPERACILLIN-TAZOBACTAM 3.375 GM in SODIUM CHLORIDE 0.9% 100 ML IVPB SCH (08:42)
[2021-04-15] MEDS: PANTOPRAZOLE 40 MG/10 ML VIAL IV SCH (08:43)
[2021-04-15] MEDS: DEXTROSE 5%-0.45% NACL 1,000 ML IV SCH (08:51)
--- NOTE | 2021-04-15 09:47 | P.PN ---
Subjective Progress Note Date: 04/15/21 Principal diagnosis: Colitis The patient is seen and examined at the bedside. She states her abdominal pain has improved. She denies any nausea or vomiting. She has had no further bowel movements. She has been afebrile. Objective - Vital Signs Vital signs: Vital Signs Temp 98 F 04/15/21 07:35 Pulse 67 04/15/21 07:35 Resp 18 04/15/21 07:35 BP 96/59 04/15/21 07:35 Pulse Ox 100 04/15/21 07:35 Intake & Output 04/14/21 04/15/21 04/15/21 18:59 06:59 18:59 Weight 81.647 kg Other: Voiding Method Toilet # Voids 1 2 - Exam General appearance: The patient is alert, oriented, appears in no acute distress. HET: Head is normocephalic and atraumatic. Conjunctiva pink. Sclera anicteric. Neck: Supple without lymphadenopathy. Abdomen: Soft, lower abdominal tenderness, nondistended with bowel sounds. No guarding or rigidity. Extremities: Normal skin color and turgor. No pedal edema Skin: No rashes, no jaundice Neurological: No focal deficits. Alert and oriented 3. - Labs CBC & Chem 7: 04/14/21 03:37 04/13/21 21:45 Labs: Microbiology - Last 24 Hours (Table) 04/13/21 21:40 Blood Culture - Preliminary Blood No Growth after 24 hours 04/13/21 21:55 Blood Culture - Preliminary Blood No Growth after 24 hours Assessment and Plan (1) Abdominal pain Narrative/Plan: 40-year-old female who presented to the emergency department with complaints of new onset abdominal pain and cramping greatest in the left lower quadrant associated with nausea but no vomiting He can yesterday afternoon followed by fevers and chills. She states she had a similar episode 2-3 months ago, at that time she was also having bloody bowel movements. She denies any diarrhea or blood per rectum. States she had some constipation and took 2 laxatives and had a soft bowel movement. She has been treated for irritable bowel syndrome with Bentyl and was prescribed amitriptyline but did not continue due to her history of SVT. She had a max temp 100.3 on admission. She recently returned from a vacation to [place], denies any sick contacts. She had a colonoscopy 02/19/[address] Jimenez that showed a normal-appearing colon. On admission she had leukocytosis, hemoglobin stable at 12.7, CRP 1.1. LFTs unremarkable. Likely dealing with an infectious colitis/diverticulitis, other possibilities include inflammatory or ischemic, although less likely as she has had recent colonoscopy which was normal. Inflammatory markers ordered. Current Visit: Yes Status: Acute Code(s): R10.9 - UNSPECIFIED ABDOMINAL PAIN SNOMED Code(s): 99514944 Plan: 1. Continue symptomatic supportive care 2. Antiemetics as needed for nausea 3. Zosyn q12 hours 4. Protonix 40 mg daily 5. Liquid diet, advance as tolerated 6. Bentyl as needed 7. No plans on endoscopic evaluation at this time. If patient has a recurrence she is to follow-up with Dr. Jimenez for outpatient colonoscopy. Thank you for this consultation, we will continue to follow Dr. James I agree with the dictator's note, documented as a scribe by Freda Centeno.
--- NOTE | 2021-04-15 13:55 | P.DS ---
Providers Date of admission: 04/13/21 23:39 Attending physician: Chrissy Al Consults: 04/13/21 23:38 Consult Physician Routine Consulting Provider: Holley Jimenez Consult Reason/Comments: known Do you want consulting provider notified?: Yes Primary care physician: Edwin [facility] Course: Patient is a 40-year-old female came in with complaints of left lower quadrant abdominal pain and severe sharp in nature nonradiating patient was also having crampy abdominal pain. Patient is found to have diverticulitis or colitis patient was started on antibiotics Unasyn which was subsequently switched to Zosyn. Patient to past had similar symptoms. Patient had a colonoscopy at that time which was clear. Patient was diagnosed with the irritable bowel syndrome. Patient's present episode is associated with fever and she says she has temperature of 100.7 at home and had a documented fever of 100.3 here. Patient is bit hypomagnesemia which is being replaced at this time. Patient does have leukocytosis. 04/15/2021 Patient has significant clinical improvement in her pain. Didn't have any bowel movement today. Patient will be discharged today if cleared by gastroenterology will advance her diet to full liquid diet and patient will remain on soft diet for about a week patient is afebrile patient will be discharged on a week of Augmentin for diverticulitis or colitis. PHYSICAL EXAMINATION: GENERAL: The patient is alert and oriented x3, not in any acute distress. Well developed, well nourished. HEENT: Pupils are round and equally reacting to light. EOMI. No scleral icterus. No conjunctival pallor. Normocephalic, atraumatic. No pharyngeal erythema. No thyromegaly. CARDIOVASCULAR: S1 and S2 present. No murmurs, rubs, or gallops. PULMONARY: Chest is clear to auscultation, no wheezing or crackles. ABDOMEN: Soft, nontender, nondistended, normoactive bowel sounds. No palpable organomegaly. MUSCULOSKELETAL: No joint swelling or deformity. EXTREMITIES: No cyanosis, clubbing, or pedal edema. NEUROLOGICAL: Gross neurological examination did not reveal any focal deficits. SKIN: No rashes. Assessment and Plan Plan: -Possible colitis/diverticulitis: History of SVT -Hyperthyroidism: Continue with levothyroxine Patient Condition at Discharge: Good Plan - Discharge Summary New Discharge Prescriptions: New Amoxicillin/Potassium Clav [Augmentin 875-125 Tablet] 1 tab PO Q12HR 7 Days #14 tab Continue valACYclovir [Valtrex] 500 mg PO BID PRN PRN Reason: Cold Sores Levothyroxine Sodium [Synthroid] 125 mcg PO DAILY Famotidine [Pepcid] 20 mg PO DAILY Pantoprazole Sodium [Protonix] 40 mg PO DAILY Metoclopramide [Reglan] 10 mg PO QID PRN PRN Reason: Nausea Dicyclomine HCl 10 mg PO TID PRN PRN Reason: Gi Upset Discharge Medication List valACYclovir [Valtrex] 500 mg PO BID PRN 10/30/17 [History] Levothyroxine Sodium [Synthroid] 125 mcg PO DAILY 03/07/21 [History] Metoclopramide [Reglan] 10 mg PO QID PRN 03/07/21 [History] Pantoprazole Sodium [Protonix] 40 mg PO DAILY 03/07/21 [History] Dicyclomine HCl 10 mg PO TID PRN 04/13/21 [History] Famotidine [Pepcid] 20 mg PO DAILY 04/13/21 [History] Amoxicillin/Potassium Clav [Augmentin 875-125 Tablet] 1 tab PO Q12HR 7 Days #14 tab 04/15/21 [Rx] Follow up Appointment(s)/Referral(s): Holley Jimenez MD [STAFF PHYSICIAN] - 05/05/21 8:30 am (Appointment with Mami Cote Nurse Practitioner) Edwin Currie DO [Primary Care Provider] - 04/19/21 10:30 am (Appointment with Nurse Practitioner) Patient Instructions/Handouts: Colitis (ED) Discharge Disposition: HOME SELF-CARE
[2021-04-15 14:02] LABS: HCT 45.1 % (34.0-46.0); HGB 14.9 gm/dL (11.4-16.0); MCH 28.5 pg (25.0-35.0); MCV 86.3 fL (80.0-100.0); Mean Platelet Volume 9.3; Platelet Count 191 k/uL (150-450); RBC 5.23 m/uL (3.80-5.40); WBC 6.5 k/uL (3.8-10.6)
== END 2021-04-15 14:45 | disposition home or self-care (01) | DRG 392 ==
LOC: EC 20:52 → 4SSUR 23:39
PROVIDERS: ADMIT Hospitalist; ATTEND Hospitalist
DX: A09 Infectious gastroenteritis and colitis, unspecified (principal); K57.32 Diverticulitis of large intestine without perforation or abscess without bleeding; E83.42 Hypomagnesemia; Z20.822 Contact with and (suspected) exposure to COVID-19; E86.0 Dehydration; E89.0 Postprocedural hypothyroidism; K58.2 Mixed irritable bowel syndrome; Z79.890 Hormone replacement therapy; Z79.899 Other long term (current) drug therapy; Z86.79 Personal history of other diseases of the circulatory system; Z90.89 Acquired absence of other organs; Z90.49 Acquired absence of other specified parts of digestive tract; Z87.19 Personal history of other diseases of the digestive system; Z87.42 Personal history of other diseases of the female genital tract; Z98.51 Tubal ligation status; Z98.891 History of uterine scar from previous surgery; Z98.890 Other specified postprocedural states; Z88.8 Allergy status to other drugs, medicaments and biological substances; Z80.0 Family history of malignant neoplasm of digestive organs
CPT/HCPCS: 36415; 71045; 74177; 80053; 82728; 83605; 83615; 83735; 85025; 85027; 85379; 85610; 85652; 85730; 86140; 87040; 87635; 93005; 96360; 99285

== ENCOUNTER → 2021-07-07 | Outpatient (CLI) | payer BC ==
--- NOTE | 2021-07-12 08:26 | MM ---
Reason for exam: screening (asymptomatic). Baseline mammogram. History: Took hormonal contraceptives for 14 years beginning at age 16. Physical Findings: Nurse did not find any significant physical abnormalities on exam. MG 3D Screening Mammo W/Cad Bilateral CC and MLO view(s) were taken. There are scattered fibroglandular densities. There is no discrete abnormality. No persisting abnormality on 3D images. ASSESSMENT: Negative, BI-RAD 1 RECOMMENDATION: Routine screening mammogram of both breasts in 1 year.
== END | disposition home or self-care (01) ==
LOC: RADMAMWWP 11:08
PROVIDERS: ATTEND Family Medicine
DX: Z12.31 Encounter for screening mammogram for malignant neoplasm of breast (principal)
CPT/HCPCS: 77063; 77067

== ENCOUNTER → 2021-09-22 | Outpatient (CLI) | payer BC ==
[2021-09-22 11:41] LABS: HCT 42.5 % (37.2-46.3); HGB 13.9 g/dL (12.0-15.0); MCHC 32.7 g/dL (32.0-37.0); MCV 85.7 fL (80.0-97.0); Platelet Count 196 X 10*3/uL (140-440); RBC 4.96 X 10*6/uL (4.10-5.20); RDW 13.2 % (11.5-14.5)
[2021-09-22 12:12] LABS: African American GFR (CKD) 88.8 (60.0-200.0); Albumin 4.1 g/dL (3.8-4.9); Albumin/Globulin Ratio 1.72 (1.60-3.17); Anion Gap 10.4 mmol/L (10.00-18.00); BUN/Creat Ratio 20.15 Ratio (12.00-20.00); Blood Urea Nitrogen 18.8 mg/dL (9.0-27.0); Calcium 8.8 mg/dL (8.7-10.3); Carbon Dioxide 22.7 mmol/L (20.0-27.5); Globulin 2.4 g/dL (1.6-3.3); Non-African American GFR(CKD) 76.6 (60.0-200.0); Potassium 4.2 mmol/L (3.5-5.5); Total Bilirubin 0.8 mg/dL (0.30-1.20); Total Protein 6.4 g/dL (6.2-8.2)
== END | disposition home or self-care (01) ==
LOC: LABWHC1 07:08
DX: R10.13 Epigastric pain (principal); R11.0 Nausea; R68.81 Early satiety
CPT/HCPCS: 36415; 80053; 83690; 85027

== ENCOUNTER → 2021-10-13 | Outpatient (CLI) | payer BC ==
--- NOTE | 2021-10-13 11:40 | US ---
EXAMINATION TYPE: US abdomen complete DATE OF EXAM: 10/13/2021 COMPARISON: Correlation CT 04/13/2021 CLINICAL HISTORY: 40-year-old female K74.3 Primary Biliary cirrhosis. Epigastric pain per patient. TECHNIQUE: Multiple sonographic images of the abdomen are obtained. FINDINGS: EXAM MEASUREMENTS: Liver Length: 16.7 cm Gallbladder Wall: 0.2 cm CBD: 0.5 cm Spleen: 11.3 cm Right Kidney: 10.1 x 4.7 x 4.0 cm Left Kidney: 11.2 x 4.2 x 4.0 cm Pancreas: Tail obscured by overlying bowel gas Liver: Slightly attenuating. No definite focal lesion. Gallbladder: wnl Evidence for sonographic Daniel's sign: neg CBD: wnl Spleen: wnl Right Kidney: wnl Left Kidney: The lower pole is limited due to overlying bowel gas. No hydronephrosis. Upper IVC: wnl Abd Aorta: No AAA visualized IMPRESSION: 1. Slight attenuating appearance to the liver may reflect nonspecific hepatocellular disease. No foca l lesion is seen. 2. No gallstones or biliary ductal dilatation.
== END | disposition home or self-care (01) ==
LOC: RADUSWWP 08:15
PROVIDERS: ATTEND Nurse Practitioner Family
DX: K76.89 Other specified diseases of liver (principal)
CPT/HCPCS: 76700

== ENCOUNTER → 2021-10-14 | Outpatient (CLI) | payer BC ==
--- NOTE | 2021-10-14 09:37 | NM ---
Nuclear medicine hepatobiliary scan. HISTORY: Pain. DOSAGE: The patient received 8 ounces of ensure plus and 5.2 mCi of Technetium 99m Choletec. FINDINGS: There is normal hepatic extraction. The gallbladder is seen by 20 minutes. There is bilia ry to bowel clearance by 50 minutes. Ejection fraction is 72%. IMPRESSION: 1. Normal hepatobiliary exam
== END | disposition home or self-care (01) ==
LOC: RADNMMAIN 06:55
PROVIDERS: ATTEND Nurse Practitioner Family
DX: R10.13 Epigastric pain (principal)
CPT/HCPCS: 78226; A9537

== ENCOUNTER 2021-12-09 08:52 | Emergency (ER) | payer BC ==
[2021-12-09] MEDS ORDERED: KETOROLAC 15 MG/ML 1 ML VIAL IVP STA (09:18)
[2021-12-09] MEDS ORDERED: SODIUM CHLORIDE 0.9% 500 ML 500 ML IV STA (09:18)
--- NOTE | 2021-12-09 09:24 | ED ---
General Adult HPI - General Chief complaint: Chest Pain Stated complaint: chest & shoulder pain Time Seen by Provider: 12/09/21 09:13 Source: patient Mode of arrival: ambulatory Limitations: no limitations - History of Present Illness Initial comments: 41-year-old female patient presents to the emergency department today for evaluation of right-sided chest pain with radiation to her right posterior shoulder and down her right arm. States this started about 3 or 4 days ago while she was sleeping. States that the pain worsens significantly while she was lying flat in bed. States the whole area feels achy in tender. Denies significantly increased pain with movement. Does report tenderness to palpation. She denies any shortness of breath. Denies nausea or vomiting. Denies any difficulty with urination. She did have Covid at the end of Dece mber. Cough is resolved. She denies any fever or chills. Denies any known injuries. She has had appendectomy no other abdominal surgeries. - Related Data Home Medications Medication Instructions Recorded Confirmed Levothyroxine Sodium [Synthroid] 125 mcg PO DAILY 03/07/21 12/09/21 Pantoprazole Sodium [Protonix] 40 mg PO BID 03/07/21 12/09/21 Acetaminophen Tab [Tylenol Tab] 1,000 mg PO Q6HR PRN 12/09/21 12/09/21 Ibuprofen [Motrin Ib] 800 mg PO Q8H PRN 12/09/21 12/09/21 Magnesium 200 mg PO DAILY 12/09/21 12/09/21 Nadolol [Corgard] 10 mg PO DAILY 12/09/21 12/09/21 Psyllium Husk (with Sugar) 1 tbsp PO DAILY 12/09/21 12/09/21 [Metamucil Powder] Previous Rx's Medication Instructions Recorded Cyclobenzaprine [Flexeril] 10 mg PO TID #15 tab 12/09/21 Allergies Allergy/AdvReac Type Severity Reaction Status Date / Time benzonatate Allergy Rash/Hives Verified 12/09/21 10:12 [From Tessalon Perles] droperidol [From Inapsine] Allergy stated Verified 12/09/21 10:12 "unable to talk had a locked jaw" Review of Systems ROS Statement: Those systems with pertinent positive or pertinent negative responses have been documented in the HPI. ROS Other: All systems not noted in ROS Statement are negative. Past Medical History Past Medical History: Hypertension, Supraventricular Tachycardia (SVT), Thyroid Disorder Additional Past Medical History / Comment(s): diverticulitis History of Any Multi-Drug Resistant Organisms: None Reported Past Surgical History: Adenoidectomy, Appendectomy, Cardiac Ablation, Section, Tonsillectomy, Tubal Ligation, Uterine Ablation Additional Past Surgical History / Comment(s): THYROIDECTOMY. LAPAROSCOPIC EXAM Past Anesthesia/Blood Transfusion Reactions: Postoperative Nausea & Vomiting (PONV) Past Psychological History: No Psychological Hx Reported Smoking Status: Never smoker Past Alcohol Use History: None Reported Past Drug Use History: None Reported - Past Family History Mother Family Medical History: No Reported History Father Family Medical History: Cancer Additional Family Medical History / Comment(s): liver CA General Exam Limitations: no limitations General appearance: alert, in no apparent distress, other (This is a well- developed, well-nourished adult female in no acute distress.) Respiratory exam: Present: normal lung sounds bilaterally. Absent: respiratory distress, wheezes, rales, rhonchi, stridor Cardiovascular Exam: Present: regular rate, normal rhythm, normal heart sounds. Absent: systolic murmur, diastolic murmur, rubs, gallop, clicks GI/Abdominal exam: Present: soft, tenderness (Mid-epigastric and right upper quadrant), normal bowel sounds. Absent: distended, guarding, rebound, rigid Extremities exam: Present: normal inspection, full ROM, normal capillary refill, other (Skin to the right arm is pink, warm, dry. Cap refill less than 3 seconds. Radial pulses 2+.). Absent: tenderness, pedal edema, joint swelling, calf tenderness Neurological exam: Present: alert, oriented X3, CN II-XII intact Psychiatric exam: Present: normal affect, normal mood Skin exam: Present: warm, dry, intact, normal color. Absent: rash Course Vital Signs 12/09/21 12/09/21 12/09/21 09:07 09:45 11:45 Temperature 98.4 F 98.5 F Pulse Rate 76 73 73 Respiratory 16 14 18 Rate Blood Pressure 165/99 140/96 143/94 O2 Sat by Pulse 100 99 99 Oximetry EKG Findings - EKG Comments: EKG Findings:: EKG obtained at 07 11 shows sinus rhythm with a ventricular 68, NM interval 148, QRS duration 105, QT 421, QTC 438. No evidence of ST elevation or depression. Medical Decision Making - Medical Decision Making 41-year-old female patient presents the emergency department for evaluation of right upper chest pain and shoulder pain arm pain. Physical examination is unremarkable. Lungs are clear to auscultation with good air movement. EKG is unremarkable. Labs reviewed and showed normal troponin, normal liver enzymes, normal bilirubin., White blood cell count. I did discuss findings and results with her. She'll be discharged home with prescription for Flexeril and instructed take ibuprofen and Tylenol. Return parameters discussed in detail. She verbalizes understanding and agrees with this plan. My attending is Dr. Bowens. - Lab Data Result diagrams: 12/09/21 09:41 12/09/21 09:41 Lab Results 12/09/21 12/09/21 12/09/21 Range/Units 09:41 09:41 09:41 WBC 6.2 (3.8-10.6) k/uL RBC 4.98 (3.80-5.40) m/uL Hgb 14.7 (11.4-16.0) gm/dL Hct 43.2 (34.0-46.0) % MCV 86.7 (80.0-100.0) fL MCH 29.6 (25.0-35.0) pg MCHC 34.1 (31.0-37.0) g/dL RDW 13.1 (11.5-15.5) % Plt Count 198 (150-450) k/uL MPV 8.5 Neutrophils % 60 % Lymphocytes % 31 % Monocytes % 5 % Eosinophils % 1 % Basophils % 0 % Neutrophils # 3.7 (1.3-7.7) k/uL Lymphocytes # 1.9 (1.0-4.8) k/uL Monocytes # 0.3 (0-1.0) k/uL Eosinophils # 0.1 (0-0.7) k/uL Basophils # 0.0 (0-0.2) k/uL Sodium 139 (137-145) mmol/L Potassium 4.1 (3.5-5.1) mmol/L Chloride 105 (98-107) mmol/L Carbon Dioxide 27 (22-30) mmol/L Anion Gap 7 mmol/L BUN 14 (7-17) mg/dL Creatinine 0.85 (0.52-1.04) mg/dL Est GFR (CKD-EPI)AfAm >90 (>60 ml/min/1.73 sqM) Est GFR (CKD-EPI)NonAf 86 (>60 ml/min/1.73 sqM) Glucose 98 (74-99) mg/dL Plasma Lactic Acid Chaitanya (0.7-2.0) mmol/L Calcium 9.2 (8.4-10.2) mg/dL Total Bilirubin 1.0 (0.2-1.3) mg/dL AST 23 (14-36) U/L ALT 18 (4-34) U/L Alkaline Phosphatase 63 (38-126) U/L Troponin I (0.000-0.034) ng/mL Total Protein 7.3 (6.3-8.2) g/dL Albumin 4.1 (3.5-5.0) g/dL Lipase 84 (23-300) U/L Urine Color Light Yellow Urine Appearance Clear (Clear) Urine pH 6.5 (5.0-8.0) Ur Specific [place] 1.010 (1.001-1.035) Urine Protein Negative (Negative) Urine Glucose (UA) Negative (Negative) Urine Ketones Negative (Negative) Urine Blood Negative (Negative) Urine Nitrite Negative (Negative) Urine Bilirubin Negative (Negative) Urine Urobilinogen <2.0 (<2.0) mg/dL Ur Leukocyte Esterase Negative (Negative) 12/09/21 12/09/21 Range/Units 09:41 09:41 WBC (3.8-10.6) k/uL RBC (3.80-5.40) m/uL Hgb (11.4-16.0) gm/dL Hct (34.0-46.0) % MCV (80.0-100.0) fL MCH (25.0-35.0) pg MCHC (31.0-37.0) g/dL RDW (11.5-15.5) % Plt Count (150-450) k/uL MPV Neutrophils % % Lymphocytes % % Monocytes % % Eosinophils % % Basophils % % Neutrophils # (1.3-7.7) k/uL Lymphocytes # (1.0-4.8) k/uL Monocytes # (0-1.0) k/uL Eosinophils # (0-0.7) k/uL Basophils # (0-0.2) k/uL Sodium (137-145) mmol/L Potassium (3.5-5.1) mmol/L Chloride (98-107) mmol/L Carbon Dioxide (22-30) mmol/L Anion Gap mmol/L BUN (7-17) mg/dL Creatinine (0.52-1.04) mg/dL Est GFR (CKD-EPI)AfAm (>60 ml/min/1.73 sqM) Est GFR (CKD-EPI)NonAf (>60 ml/min/1.73 sqM) Glucose (74-99) mg/dL Plasma Lactic Acid Chaitanya 1.3 (0.7-2.0) mmol/L Calcium (8.4-10.2) mg/dL Total Bilirubin (0.2-1.3) mg/dL AST (14-36) U/L ALT (4-34) U/L Alkaline Phosphatase (38-126) U/L Troponin I <0.012 (0.000-0.034) ng/mL Total Protein (6.3-8.2) g/dL Albumin (3.5-5.0) g/dL Lipase (23-300) U/L Urine Color Urine Appearance (Clear) Urine pH (5.0-8.0) Ur Specific [place] (1.001-1.035) Urine Protein (Negative) Urine Glucose (UA) (Negative) Urine Ketones (Negative) Urine Blood (Negative) Urine Nitrite (Negative) Urine Bilirubin (Negative) Urine Urobilinogen (<2.0) mg/dL Ur Leukocyte Esterase (Negative) - Radiology Data Radiology results: report reviewed, image reviewed 2 views of the chest are obtained. Report was reviewed in its entirety. Impression by Dr. Desir shows no acute process. Disposition Clinical Impression: Right shoulder pain, Chest pain Disposition: HOME SELF-CARE Condition: Good Instructions (If sedation given, give patient instructions): Chest Pain (ED), Shoulder Pain (ED) Additional Instructions: Take medications as directed. Follow-up with the primary care physician for recheck in 1-2 days. Return for any new, worsening, or concerning symptoms Prescriptions: Cyclobenzaprine [Flexeril] 10 mg PO TID #15 tab Is patient prescribed a controlled substance at d/c from ED?: No Referrals: Kush,Edwin, DO [Primary Care Provider] - 1-2 days Time of Disposition: 11:53
[2021-12-09 09:47] VITALS: PULSE 73; TEMP 98.5
[2021-12-09 09:57] LABS: Basophils % (A) 0 %; Eosinophils # (A) 0.1 k/uL (0-0.7); Eosinophils % (A) 1 %; HCT 43.2 % (34.0-46.0); HGB 14.7 gm/dL (11.4-16.0); Lymphocytes # (A) 1.9 k/uL (1.0-4.8); Lymphocytes % (A) 31 %; MCH 29.6 pg (25.0-35.0); MCHC 34.1 g/dL (31.0-37.0); MCV 86.7 fL (80.0-100.0); Mean Platelet Volume 8.5; Monocytes # (A) 0.3 k/uL (0-1.0); Monocytes % (A) 5 %; Neutrophils # (A) 3.7 k/uL (1.3-7.7); Neutrophils % (A) 60 %; Platelet Count 198 k/uL (150-450); RBC 4.98 m/uL (3.80-5.40); RDW 13.1 % (11.5-15.5); WBC 6.2 k/uL (3.8-10.6)
[2021-12-09 10:04] LABS: Appearance,Urine Clear (Clear); Bilirubin,Urine Negative (Negative); Blood,Urine Negative (Negative); Color,Urine Light Yellow; Glucose,Urine (UA) Negative (Negative); Ketones,Urine Negative (Negative); Leukocyte Esterase,Urine Negative (Negative); Nitrite,Urine Negative (Negative); PH, Urine 6.5 (5.0-8.0); Protein,Urine Negative (Negative); Urobilinogen,Urine <2.0 mg/dL (<2.0)
[2021-12-09 10:08] LABS: ALT 18 U/L (4-34); AST 23 U/L (14-36); African American GFR (CKD) >90 (>60 ml/min/1.73 sqM); Albumin 4.1 g/dL (3.5-5.0); Alkaline Phosphatase 63 U/L (38-126); Anion Gap 7 mmol/L; Blood Urea Nitrogen 14 mg/dL (7-17); Calcium 9.2 mg/dL (8.4-10.2); Carbon Dioxide 27 mmol/L (22-30); Chloride 105 mmol/L (98-107); Glucose 98 mg/dL (74-99); Lipase 84 U/L (23-300); Non-African American GFR(CKD) 86 (>60 ml/min/1.73 sqM); Potassium 4.1 mmol/L (3.5-5.1); Sodium 139 mmol/L (137-145); Total Protein 7.3 g/dL (6.3-8.2)
--- NOTE | 2021-12-09 11:34 | XR ---
EXAMINATION TYPE: XR chest 2V DATE OF EXAM: 12/09/2021 COMPARISON: 04/13/2021 TECHNIQUE: PA and lateral views submitted. HISTORY: Chest pain FINDINGS: The lungs are clear and there is no pneumothorax, pleural effusion, or focal pneumonia. Limited ins piration. Heart size normal. No overt failure. Biapical pleural thickening. Mild hyperinflation. IMPRESSION: 1. No acute process.
[2021-12-09 11:46] VITALS: BP 143/94; RESP 18
[2021-12-09] MEDS ORDERED: CYCLOBENZAPRINE 10MG STARTER 3 TAB BTL PO STA (11:57)
== END 2021-12-09 12:11 | disposition home or self-care (01) ==
LOC: EC 08:52
DX: R07.89 Other chest pain (principal); M25.511 Pain in right shoulder; I10 Essential (primary) hypertension; E07.9 Disorder of thyroid, unspecified; Z90.49 Acquired absence of other specified parts of digestive tract; Z98.51 Tubal ligation status
CPT/HCPCS: 99285; 96374; 36415; 93005; 80053; 83605; 83690; 84484; 85025; 81003; 71046; J1885

== ENCOUNTER → 2022-07-22 | Outpatient (CLI) | payer BC ==
--- NOTE | 2022-07-25 07:48 | MM ---
Reason for Exam: Screening (asymptomatic). Last screening mammogram was performed 12 month(s) ago. Patient History: Menarche at age 10. First Full-Term at age 19. Premenopausal. Patient has history of breast feeding. Hormonal Contraceptives for 14 years from age 16 until age 30. Risk Values: Heidi 5 year model risk: 0.5%. NCI Lifetime model risk: 8.0%. Prior Study Comparison: 07/07/2021 Bilateral Screening Mammogram, [facility]. Tissue Density: The breast tissue is almost entirely fat. Findings: Analyzed By CAD. There is no suspicious group of microcalcifications or new suspicious mass in either breast. Overall Assessment: Negative, BI-RAD 1 Management: Screening Mammogram of both breasts in 1 year. A clinical breast exam by your physician is recommended on an annual basis and results should be correlated with mammographic findings. [facility] will attempt to contact patient to return for supplemental views and ultrasound if indicated. Electronically signed and approved by: Pablo Alcaraz DO
== END | disposition home or self-care (01) ==
LOC: RADMAMWWP 06:54
PROVIDERS: ATTEND Obstetrics & Gynecology
DX: Z12.31 Encounter for screening mammogram for malignant neoplasm of breast (principal)
CPT/HCPCS: 77063; 77067

== ENCOUNTER → 2022-10-29 | Outpatient (CLI) | payer BC | END | disposition home or self-care (01) | LOC: LABWHC1 08:17 | PROVIDERS: ATTEND Nurse Practitioner Family | DX: E03.9 Hypothyroidism, unspecified (principal) | CPT/HCPCS: 36415; 84443 ==

== ENCOUNTER → 2023-07-26 | Outpatient (CLI) | payer BC ==
--- NOTE | 2023-07-27 20:50 | MM ---
Reason for Exam: Screening (asymptomatic). Last mammogram was performed 1 year(s) and 1 month(s) ago. Patient History: Menarche at age 10. First Full-Term at age 19. Premenopausal. Patient has history of breast feeding. Hormonal Contraceptives for 14 years from age 16 until age 30. Risk Values: Heidi 5 year model risk: 0.5%. NCI Lifetime model risk: 7.9%. Prior Study Comparison: 07/07/2021 Bilateral Screening Mammogram, [facility]. 07/22/2022 Bilateral MG 3D screening mammo w/cad, [facility]. Tissue Density: There are scattered fibroglandular densities. Findings: Analyzed By CAD. There is no suspicious group of microcalcifications or new suspicious mass in either breast. Overall Assessment: Negative, BI-RAD 1 Management: Screening Mammogram of both breasts in 1 year. . Patient should continue monthly self-breast exams. A clinical breast exam by your physician is recommended on an annual basis. This exam should not preclude additional follow-up of suspicious palpable abnormalities. Note on Heidi scores and lifetime risk: 1. A Heidi score greater than 3% is considered moderate risk. If this is the case, consider specialist referral to assess eligibility for a risk reducing agent. 2. If overall lifetime risk for the development of breast cancer is 20% or higher, the patient may qualify for future screening with alternating mammogram and breast MRI. Electronically signed and approved by: Angela Grissom M.D. Radiologist
== END | disposition home or self-care (01) ==
LOC: RADMAMWWP 16:27
PROVIDERS: ATTEND Obstetrics & Gynecology
DX: Z12.31 Encounter for screening mammogram for malignant neoplasm of breast (principal)
CPT/HCPCS: 77063; 77067

== ENCOUNTER → 2024-07-29 | Outpatient (CLI) | payer BC ==
--- NOTE | 2024-07-31 12:36 | MM ---
Reason for Exam: Screening (asymptomatic). Last screening mammogram was performed 12 month(s) ago. Patient History: Menarche at age 10. First Full-Term at age 19. Premenopausal. Patient has history of breast feeding. Hormonal Contraceptives for 14 years from age 16 until age 30. Risk Values: Heidi 5 year model risk: 0.6%. NCI Lifetime model risk: 7.8%. Prior Study Comparison: 07/07/2021 Bilateral Screening Mammogram, [facility]. 07/22/2022 Bilateral MG 3D screening mammo w/cad, [facility]. 07/26/2023 Bilateral MG 3D screening mammo w/cad, [facility]. Tissue Density: There are scattered areas of fibroglandular density. Findings: Analyzed By CAD. There is no suspicious group of microcalcifications or new suspicious mass in either breast. Overall Assessment: Negative, BI-RAD 1 Management: Screening Mammogram of both breasts in 1 year. . Patient should continue monthly self-breast exams. A clinical breast exam by your physician is recommended on an annual basis. This exam should not preclude additional follow-up of suspicious palpable abnormalities. Note on Heidi scores and lifetime risk: 1. A Heidi score greater than 3% is considered moderate risk. If this is the case, consider specialist referral to assess eligibility for a risk reducing agent. 2. If overall lifetime risk for the development of breast cancer is 20% or higher, the patient may qualify for future screening with alternating mammogram and breast MRI. [facility], , 07/31/2024 12:33 PM. Electronically signed and approved by: Mo Wong M.D. Radiologis
== END | disposition home or self-care (01) ==
LOC: RADMAMWWP 15:57
PROVIDERS: ATTEND Obstetrics & Gynecology
DX: Z12.31 Encounter for screening mammogram for malignant neoplasm of breast
CPT/HCPCS: 77063; 77067

== ENCOUNTER 2024-09-03 13:03 | Emergency (ER) | payer BC ==
--- NOTE | 2024-09-03 14:13 | ED ---
Abdominal Pain HPI - General Chief Complaint: Abdominal Pain Stated Complaint: Abd pain Time Seen by Provider: 09/03/24 14:11 Source: patient, RN notes reviewed Mode of arrival: ambulatory Limitations: no limitations - History of Present Illness Initial Comments: 43-year-old female presented to the ER with a chief complaint of abdominal pain and nausea. Patient states she has been on Mounjaro since the end of February. She recently had a dose increase. She states she typically takes her doses in half to avoid side effects. Her last dose was 08-24-2024. She states that following Monday she had an episode of emesis and was unable to keep any food down. She states the next day she also was feeling nauseous but denies any emesis. That she started to have abdominal cramping and watery diarrhea as well. She states then send she has been unable to eat anything without vomiting or having diarrhea. She tried taking Pepcid and Pepto-Bismol without relief. She denies any hematic emesis, coffee ground emesis, hematochezia. She does report melena after Pepto-Bismol. Denies any urinary complaints, fevers, chills, chest pain, shortness of breath. Patient does report a history of IBS. - Related Data Home Medications Medication Instructions Recorded Confirmed Levothyroxine Sodium [Synthroid] 125 mcg PO DAILY 03/07/21 09/03/24 Magnesium 200 mg PO DAILY 12/09/21 09/03/24 Azelaic Acid 1 applic TOPICAL DAILY 09/03/24 09/03/24 [place]-3/Dha/Epa/Fish Oil [Fish Oil 1 cap PO DAILY 09/03/24 09/03/24 1,000 mg Softgel] Roflumilast [Zoryve] 1 applic TOPICAL HS 09/03/24 09/03/24 Tretinoin/Emollient Base 1 applic TOPICAL HS 09/03/24 09/03/24 [Tretinoin 0.05% Emollient Crm] Vitamin D3/Vitamin K2 (Mk4) 1 tab PO DAILY 09/03/24 09/03/24 [Vitamin K2 Plus D3 Tablet] valACYclovir HCL [Valtrex] 500 mg PO DAILY 09/03/24 09/03/24 Previous Rx's Medication Instructions Recorded Dicyclomine [Bentyl] 20 mg PO TID #30 tablet 09/03/24 Metoclopramide [Reglan] 10 mg PO TID PRN #15 tab 09/03/24 Allergies Allergy/AdvReac Type Severity Reaction Status Date / Time benzonatate Allergy Rash/Hives Verified 09/03/24 14:05 [From Tessalon Perles] droperidol [From Inapsine] Allergy stated Verified 09/03/24 14:05 "unable to talk had a locked jaw" Review of Systems ROS Statement: Those systems with pertinent positive or pertinent negative responses have been documented in the HPI. ROS Other: All systems not noted in ROS Statement are negative. Past Medical History Past Medical History: Hypertension, Supraventricular Tachycardia (SVT), Thyroid Disorder Additional Past Medical History / Comment(s): diverticulitis History of Any Multi-Drug Resistant Organisms: None Reported Past Surgical History: Adenoidectomy, Appendectomy, Cardiac Ablation, Section, Tonsillectomy, Tubal Ligation, Uterine Ablation Additional Past Surgical History / Comment(s): THYROIDECTOMY. LAPAROSCOPIC EXAM Past Anesthesia/Blood Transfusion Reactions: Postoperative Nausea & Vomiting (PONV) Past Psychological History: No Psychological Hx Reported Smoking Status: Never smoker Past Alcohol Use History: None Reported Past Drug Use History: None Reported - Past Family History Mother Family Medical History: No Reported History Father Family Medical History: Cancer Additional Family Medical History / Comment(s): liver CA General Exam Limitations: no limitations General appearance: alert, in no apparent distress Respiratory exam: Present: normal lung sounds bilaterally. Absent: respiratory distress, wheezes, rales, rhonchi, stridor Cardiovascular Exam: Present: normal rhythm, tachycardia, normal heart sounds. Absent: systolic murmur, diastolic murmur, rubs, gallop, clicks GI/Abdominal exam: Present: soft, tenderness (Right upper quadrant/epigastric), normal bowel sounds Neurological exam: Present: alert, oriented X3, CN II-XII intact Skin exam: Present: warm, dry, intact, normal color. Absent: rash Course Vital Signs 09/03/24 09/03/24 13:05 15:53 Temperature 97.9 F 98.0 F Pulse Rate 110 H 89 Respiratory 20 16 Rate Blood Pressure 120/85 125/87 O2 Sat by Pulse 98 98 Oximetry Medical Decision Making - Medical Decision Making Was pt. sent in by a medical professional or institution (JULI Philippe, BILINGUAL TEACHER ASSISTANT, urgent care, hospital, or longterm...) When possible be specific @ -No Did you speak to anyone other than the patient for history (EMS, parent, family, police, friend...)? What history was obtained from this source @ -No Did you review nursing and triage notes (agree or disagree)? Why? @ -I reviewed and agree with nursing and triage notes Were old charts reviewed (outside hosp., previous admission, EMS record, old EKG, old radiological studies, urgent care reports/EKG's, longterm records)? Report findings @ -I reviews ER visit from [facility] on 08-31-24. RUQ ultrasound showing no gallstones or acute evidence of cholecystitis. CBD measuring 3.7mm. No gallbladder wall thickening. No other acute process. Differential Diagnosis (chest pain, altered mental status, abdominal pain women, abdominal pain men, vaginal bleeding, weakness, fever, dyspnea, syncope, headache, dizziness, GI bleed, back pain, seizure, CVA, palpatations, mental health, musculoskeletal)? @Differential Abdominal Pain Women: Appendicitis, Cholecystitis, diverticulosis, ischemic bowel, pancreatitis, hepatitis, UTI, gastroenteritis, AAA, incarcerated hernia, bowel obstruction, constipation, inflammatory bowel, hepatitis, peptic ulcer disease, splenic infarction, perforated viscus, vulvitis, ovarian torsion, PID, kidney stone, placenta abruption, this is not meant to be an all-inclusive list EKG interpreted by me (3pts min.). @ -None done X-rays interpreted by me (1pt min.). @ -None done CT interpreted by me (1pt min.). @ -CT abdomen pelvis negative for acute intra-abdominal process. U/S interpreted by me (1pt. min.). @ -None done What testing was considered but not performed or refused? (CT, X-rays, U/S, labs)? Why? @ -None What meds were considered but not given or refused? Why? @ -None Did you discuss the management of the patient with other professionals (professionals i.e. JULI Philippe, BILINGUAL TEACHER ASSISTANT, lab, RT, psych nurse, older adult social work specialist, spares scheduler, teacher, navigation officer, director of casework department)? Give summary @ -No Was smoking cessation discussed for >3mins.? @ -No Was critical care preformed (if so, how long)? @ -No Were there social determinants of health that impacted care today? How? (Homelessness, low income, unemployed, alcoholism, drug addiction, transportation, low edu. Level, literacy, decrease access to med. care, [facility], rehab)? @ -No Was there de-escalation of care discussed even if they declined (Discuss DNR or withdrawal of care, Hospice)? DNR status @ -No What co-morbidities impacted this encounter? (DM, HTN, Smoking, COPD, CAD, Cancer, CVA, ARF, Chemo, Hep., AIDS, mental health diagnosis, sleep apnea, morbid obesity)? @ -Patient currently taking Mounjaro Was patient admitted / discharged? Hospital course, mention meds given and route, prescriptions, significant lab abnormalities, going to OR and other pe rtinent info. @ -Discharge. 43-year-old female presented to the ER with a chief complaint of abdominal pain with associated nausea and vomiting. History and physical exam completed. Patient is tachycardic at 110 upon arrival which is likely due to pain. Vitals otherwise stable. Patient no signs of acute distress nontoxic- appearing. Exam remarkable for right upper quadrant abdominal tenderness with normal bowel sounds. No rebound or guarding. Laboratory studies and CT will be obtained as patient reports ultrasound completed 3 days prior at [facility].Laboratory studies obtained is hemoconcentrated with a hemoglobin of 17. WBC 10.5, lactic 1.3. Amylase 56, lipase 144. Urinalysis with 1+ ketones no evidence of infection. CT abdomen pelvis negative. Patient received 1 liter IV fluids while in the ER. Patient refused antiemetics and/or analgesic medications. Symptoms believed to be due to recent Mounjaro use. Patient was started on Reglan and Bentyl for symptom control outpatient. I advised her to follow-up with PCP by the end of the week. Strict return parameters discussed. Patient discharged in stable condition with follow-up to PCP. Patient verbally expressed understanding and agreement with care plan. Case discussed with ED attending, Dr. Bajwa. Undiagnosed new problem with uncertain prognosis? @ -No Drug Therapy requiring intensive monitoring for toxicity (Heparin, Nitro, Insulin, Cardizem)? @ -No Were any procedures done? @ -No Diagnosis/symptom? @ -Abdominal pain Acute, or Chronic, or Acute on Chronic? @ -Acute Uncomplicated (without systemic symptoms) or Complicated (systemic symptoms)? @ -Uncomplicated Side effects of treatment? @ -No Exacerbation, Progression, or Severe Exacerbation? @ -No Poses a threat to life or bodily function? How? (Chest pain, [place], [place], pneumonia, PE, COPD, DKA, ARF, appy, cholecystitis, CVA, Diverticulitis, Homicidal, Suicidal, threat to staff... and all critical care pts) @ -No - Lab Data Result diagrams: 09/03/24 14:19 09/03/24 14:19 Lab Results 09/03/24 09/03/24 09/03/24 Range/Units 14:19 14:19 14:19 WBC 10.5 (3.8-10.6) k/uL RBC 5.93 H (3.80-5.40) m/uL Hgb 17.0 H (11.4-16.0) gm/dL Hct 51.3 H (34.0-46.0) % MCV 86.5 (80.0-100.0) fL MCH 28.7 (25.0-35.0) pg MCHC 33.2 (31.0-37.0) g/dL RDW 13.5 (11.5-15.5) % Plt Count 218 (150-450) k/uL MPV 9.8 Neutrophils % 80 % Lymphocytes % 15 % Monocytes % 3 % Eosinophils % 1 % Basophils % 0 % Neutrophils # 8.4 H (1.3-7.7) k/uL Lymphocytes # 1.6 (1.0-4.8) k/uL Monocytes # 0.3 (0-1.0) k/uL Eosinophils # 0.1 (0-0.7) k/uL Basophils # 0.0 (0-0.2) k/uL Sodium 137 (137-145) mmol/L Potassium 4.2 (3.5-5.1) mmol/L Chloride 108 H (98-107) mmol/L Carbon Dioxide 24 (22-30) mmol/L Anion Gap 5 mmol/L BUN 13 (7-17) mg/dL Creatinine 0.79 (0.52-1.04) mg/dL Est GFR (CKD-EPI)AfAm >90 (>60 ml/min/1.73 sqM) Est GFR (CKD-EPI)NonAf >90 (>60 ml/min/1.73 sqM) Glucose 101 H (74-99) mg/dL Plasma Lactic Acid Chaitanya 1.3 (0.7-2.0) mmol/L Calcium 8.6 (8.4-10.2) mg/dL Total Bilirubin 0.9 (0.2-1.3) mg/dL AST 26 (14-36) U/L ALT 16 (4-34) U/L Alkaline Phosphatase 55 (38-126) U/L Total Protein 6.5 (6.3-8.2) g/dL Albumin 3.8 (3.5-5.0) g/dL Amylase 56 (30-110) U/L Lipase 144 (23-300) U/L Urine Color Urine Appearance (Clear) Urine pH (5.0-8.0) Ur Specific [place] (1.001-1.035) Urine Protein (Negative) Urine Glucose (UA) (Negative) Urine Ketones (Negative) Urine Blood (Negative) Urine Nitrite (Negative) Urine Bilirubin (Negative) Urine Urobilinogen (<2.0) mg/dL Ur Leukocyte Esterase (Negative) Urine HCG, Qual (Not Detectd) 09/03/24 09/03/24 Range/Units 14:19 14:19 WBC (3.8-10.6) k/uL RBC (3.80-5.40) m/uL Hgb (11.4-16.0) gm/dL Hct (34.0-46.0) % MCV (80.0-100.0) fL MCH (25.0-35.0) pg MCHC (31.0-37.0) g/dL RDW (11.5-15.5) % Plt Count (150-450) k/uL MPV Neutrophils % % Lymphocytes % % Monocytes % % Eosinophils % % Basophils % % Neutrophils # (1.3-7.7) k/uL Lymphocytes # (1.0-4.8) k/uL Monocytes # (0-1.0) k/uL Eosinophils # (0-0.7) k/uL Basophils # (0-0.2) k/uL Sodium (137-145) mmol/L Potassium (3.5-5.1) mmol/L Chloride (98-107) mmol/L Carbon Dioxide (22-30) mmol/L Anion Gap mmol/L BUN (7-17) mg/dL Creatinine (0.52-1.04) mg/dL Est GFR (CKD-EPI)AfAm (>60 ml/min/1.73 sqM) Est GFR (CKD-EPI)NonAf (>60 ml/min/1.73 sqM) Glucose (74-99) mg/dL Plasma Lactic Acid Chaitanya (0.7-2.0) mmol/L Calcium (8.4-10.2) mg/dL Total Bilirubin (0.2-1.3) mg/dL AST (14-36) U/L ALT (4-34) U/L Alkaline Phosphatase (38-126) U/L Total Protein (6.3-8.2) g/dL Albumin (3.5-5.0) g/dL Amylase (30-110) U/L Lipase (23-300) U/L Urine Color Light Yellow Urine Appearance Clear (Clear) Urine pH 6.5 (5.0-8.0) Ur Specific [place] 1.024 (1.001-1.035) Urine Protein Negative (Negative) Urine Glucose (UA) Negative (Negative) Urine Ketones 1+ H (Negative) Urine Blood Negative (Negative) Urine Nitrite Negative (Negative) Urine Bilirubin Negative (Negative) Urine Urobilinogen <2.0 (<2.0) mg/dL Ur Leukocyte Esterase Negative (Negative) Urine HCG, Qual Not Detected (Not Detectd) - Radiology Data Radiology results: report reviewed, image reviewed Disposition Clinical Impression: Abdominal pain Disposition: HOME SELF-CARE Condition: Stable Instructions (If sedation given, give patient instructions): Abdominal Pain (ED) Additional Instructions: Follow-up with PCP in next 1-2 days. Return to the ER for any new or worsening concerns. Prescriptions: Dicyclomine [Bentyl] 20 mg PO TID #30 tablet Metoclopramide [Reglan] 10 mg PO TID PRN #15 tab PRN Reason: Nausea Is patient prescribed a controlled substance at d/c from ED?: No Referrals: Santosh Nunn DO [Primary Care Provider] - 1-2 days Time of Disposition: 15:42
[2024-09-03] MEDS: SODIUM CHLORIDE 0.9% 1,000 ML IV STA (14:21)
[2024-09-03 14:25] LABS: Basophils % (A) 0 %; Eosinophils # (A) 0.1 k/uL (0-0.7); Eosinophils % (A) 1 %; HCT 51.3 % (34.0-46.0); Lymphocytes # (A) 1.6 k/uL (1.0-4.8); Lymphocytes % (A) 15 %; MCH 28.7 pg (25.0-35.0); MCHC 33.2 g/dL (31.0-37.0); MCV 86.5 fL (80.0-100.0); Mean Platelet Volume 9.8; Monocytes # (A) 0.3 k/uL (0-1.0); Monocytes % (A) 3 %; Neutrophils # (A) 8.4 k/uL (1.3-7.7); Neutrophils % (A) 80 %; Platelet Count 218 k/uL (150-450); RBC 5.93 m/uL (3.80-5.40); RDW 13.5 % (11.5-15.5); WBC 10.5 k/uL (3.8-10.6)
[2024-09-03 14:30] LABS: Appearance,Urine Clear (Clear); Bilirubin,Urine Negative (Negative); Blood,Urine Negative (Negative); Color,Urine Light Yellow; Glucose,Urine (UA) Negative (Negative); Ketones,Urine 1+ (Negative); Leukocyte Esterase,Urine Negative (Negative); Nitrite,Urine Negative (Negative); PH, Urine 6.5 (5.0-8.0); Protein,Urine Negative (Negative); Specific Gravity,Urine 1.024 (1.001-1.035); Urobilinogen,Urine <2.0 mg/dL (<2.0)
[2024-09-03 14:38] LABS: ALT 16 U/L (4-34); AST 26 U/L (14-36); African American GFR (CKD) >90 (>60 ml/min/1.73 sqM); Albumin 3.8 g/dL (3.5-5.0); Alkaline Phosphatase 55 U/L (38-126); Amylase 56 U/L (30-110); Anion Gap 5 mmol/L; Blood Urea Nitrogen 13 mg/dL (7-17); Calcium 8.6 mg/dL (8.4-10.2); Carbon Dioxide 24 mmol/L (22-30); Chloride 108 mmol/L (98-107); Glucose 101 mg/dL (74-99); Lipase 144 U/L (23-300); Non-African American GFR(CKD) >90 (>60 ml/min/1.73 sqM); Potassium 4.2 mmol/L (3.5-5.1); Sodium 137 mmol/L (137-145); Total Bilirubin 0.9 mg/dL (0.2-1.3); Total Protein 6.5 g/dL (6.3-8.2)
--- NOTE | 2024-09-03 15:25 | CT ---
EXAMINATION TYPE: CT abdomen pelvis w con DATE OF EXAM: 09/03/2024 3:11 PM COMPARISON: Previous CT abdomen/pelvis study dated 04/11/2021. CLINICAL INDICATION: Female, 43 years old with history of epigastric abd pain/ nausea; abdominal pain , nausea, vomiting TECHNIQUE: Axial CT abdomen pelvis w con;Sagittal and coronal reformats were created on a separate w orkstation. Contrast used:100 mL of Isovue 300 with IV Contrast, (none if empty) Oral contrast used: without Oral Contrast (none if empty) CT DLP: 782 mGycm, Automated exposure control for dose reduction was used. FINDINGS: LOWER CHEST: Unremarkable ABDOMEN Liver unremarkable. Portal veins appear patent. Gallbladder unremarkable. Spleen normal size and morp hology. No focal splenic mass. No suspicious adrenal gland nodule. Kidneys enhance symmetrically bila terally. No hydronephrosis or hydroureter. No suspicious enhancing renal mass. Pancreas is unremarkab le. No abnormal biliary ductal dilatation. Trace calcified atherosclerotic disease of the abdominal aorta without aneurysmal dilatation. Celiac artery and SMA appear patent. No pathologic retrograde nail or mesenteric lymphadenopathy. Imaging through the gastrointestinal tract demonstrates scattered colonic diverticula without acute d iverticulitis. No evidence of small bowel obstruction. Stomach underdistended but otherwise unremarka ble. No significant free fluid or free air in the abdomen/pelvis. Uterus demonstrates stable appearance in prior study 04/11/2021. Right adnexal metallic clip noted. Fo llicular changes of the right ovary with largest on the follicle measuring 2.8 cm. No acute osseous a nd amounted. IMPRESSION: No acute abnormality in the abdomen/pelvis or CT findings to explain reported symptoms. [facility], , 09/03/2024 3:23 PM
[2024-09-03 15:54] VITALS: BP 125/87; PULSE 89; RESP 16; TEMP 98
== END 2024-09-03 15:54 | disposition home or self-care (01) ==
LOC: EC 13:03
DX: R10.11 Right upper quadrant pain (principal); Z88.8 Allergy status to other drugs, medicaments and biological substances
CPT/HCPCS: 36415; 80053; 82150; 83605; 83690; 85025; 81003; 81025; 74177; 99284; 96360; Q9967